=== PATIENT | male | born 1950 | race Caucasian/White ===

== ENCOUNTER 2021-08-24 12:31 | Inpatient (IN) | payer MEDICARE, SELFPAY ==
[2021-08-24] VITALS (23 sets, daily range): BP systolic 51–146; BP diastolic 32–113; PULSE 83–131; RESP 19–45; TEMP 37.7–39.5; O2SAT 84–100; BMI 20.7
--- NOTE | ~2021-08-24 | MR_ITS ---
EXAMINATION: MR BRAIN WITH CONTRAST CLINICAL INFORMATION: Metastatic disease versus paraneoplastic syndrome. Encephalopathy. COMPARISON: Brain MRI from 08/30/2021. TECHNIQUE: MRI of the brain was obtained using routine postcontrast sequences following the administration of 7 mL of Gadavist intravenous contrast. FINDINGS: No demonstrated abnormal enhancement on postcontrast imaging. Specifically, there is no evidence of enhancement of the mesial temporal lobes to strongly suggest active limbic encephalitis. Proportional prominence of the ventricles and sulcal spaces without evidence of obstructive hydrocephalus. No abnormal mass effect. No midline shift. There does appear to be peripheral enhancement associated with the 2 cm lesion centered in the left retropharyngeal space at the level of C1 as well as the 1.6 cm lesion in the left posterior musculature of the neck at the level of C1-C2. Mild enhancement associated with a 1 cm marrow based lesion within the high right parietal lobe. MR/MR head/brain w con IMPRESSION: 1. No suspicious intracranial enhancement to strongly suggest active limbic encephalitis. 2. Moderate generalized cerebral volume loss. 3. Enhancement associated with the previously noted 2 cm lesion in the left retropharyngeal soft tissues at the level of C1, 1.6 cm lesion in the left posterior musculature of the neck at the level of C1-C2, and the 1 cm marrow replacing lesion in the high right parietal bone. Along with a destructive lesion previously demonstrated within the sternum, these lesions are suspicious for metastatic disease.
--- NOTE | ~2021-08-24 | CT_ITS ---
EXAMINATION: CT CHEST, ABDOMEN AND PELVIS WITHOUT CONTRAST CLINICAL INFORMATION: Reason for Exam Fever ? perf viscus vs occult pathology COMPARISON: Chest radiograph earlier today TECHNIQUE: Multidetector volumetric imaging was performed from the thoracic inlet through the pubic symphysis without IV contrast. Sagittal and coronal reformatted images were obtained on the technologist's workstation. This CT examination was performed using dose optimization techniques as appropriate, variously including the following: *Automated exposure control *Adjustment of mA and/or kV according to patient size (this includes techniques or standardized protocols for targeted exams where dose is matched to indication/reason for exam; i.e. extremities or head) *Use of iterative reconstruction technique DLP: 329 mGy-cm FINDINGS: CHEST: Lung: Left lower lobe consolidation is present. Some milder [id number]-type abnormalities are seen in the right lower lobe consistent with inflammatory disease (9:334) no suspicious lung masses are seen.. Mediastinum: The mediastinum is unremarkable. The central vascular structures are unremarkable. No hilar or mediastinal lymphadenopathy. Pericardium/Pleura: No significant effusion. No pleural mass or thickening. Chest Wall/Axilla: There is a lytic expansile destructive lesion involving the sternum measuring 5.0 x 4.3 x 8.7 cm. A center of this measures water density. There is a rounded 1. 0.4 x 1.1 cm subcutaneous nodule in the right upper back (7:3) along with a smaller 0.8 cm nodule in the right upper back (7:6). ABDOMEN/PELVIS: Peritoneal Space: No significant free air or free fluid identified. No evidence to suggest perforation of the viscus. Liver, Gallbladder, Biliary Tree: The liver is normal in size, shape, and attenuation. No focal hepatic lesion or biliary ductal dilatation is present. The gallbladder is unremarkable with no evidence of radiopaque gallstones, gallbladder wall thickening, or obvious pericholecystic inflammatory changes. Pancreas: Unremarkable Spleen: Unremarkable. A tiny splenule is present. Adrenal Glands: Unremarkable Kidneys and Ureters: The kidneys are normal in size, shape, and attenuation. Bilateral renal cysts are present which need no further imaging or follow-up with the largest on the left measuring 5 cm. No hydronephrosis, hydroureter, or calculi seen. No perinephric stranding. Bladder: Gutiérrez catheter is present in the bladder. No bladder calculi are seen. Gastrointestinal Tract: A small hiatal hernia is present. Diverticular changes are present throughout the colon without evidence of diverticulitis. The small and large bowel are otherwise unremarkable. The appendix is not seen with certainty but there is no evidence of appendicitis. Abdominal Wall: No significant hernia is appreciated. Tiny periumbilical hernia seen containing only fat Lymph Nodes: No lymphadenopathy. Vascular: The aorta and iliac vessels demonstrate calcific plaque without aneurysm.. The IVC appears unremarkable. PELVIC VISCERA: Unremarkable OSSEUS STRUCTURES: Minimal degenerative changes are noted in the spine. No bony destructive lesions are seen. CT/CT abdomen pelvis wo con IMPRESSION: 1. Destructive sternal lesion. 2. Left lower lobe infiltrate with tree-in-bud opacities in the right lower lobe suggestive of inflammatory disease Fleischner guidelines were followed. This critical result was discussed with Sukhdeep FREEMAN@10:34pm on the evening of the exam and it was ascertained that the content and urgency of the report was understood at the time of direct communication.
--- NOTE | ~2021-08-24 | MR_ITS ---
EXAMINATION: MR BRAIN WITHOUT CONTRAST CLINICAL INFORMATION: Encephalopathy. COMPARISON: CT chest, abdomen, and pelvis from 08/24/2021. TECHNIQUE: MRI of the brain was obtained using routine sequences without contrast. FINDINGS: Moderately motion degraded exam. No focal intracranial restricted diffusion is demonstrated to suggest acute or subacute cerebral ischemia. No evidence of acute or chronic hemorrhagic products on heme-sensitive imaging. Scattered periventricular, deep white matter, and brainstem T2 FLAIR hyperintensities consistent with moderate underlying microangiopathy. There appears to be symmetric mildly increased T2 FLAIR hyperintensity within the bilateral mesial temporal lobes and insular cortices. Proportional prominence of the ventricles and sulcal spaces without evidence of obstructive hydrocephalus. Normal posterior callosal angle. No abnormal mass effect. No midline shift. Normal appearance of the pituitary gland. Normal positioning of the cerebellar tonsils. Normal arterial and venous vascular flow voids are present. Partially visualized 2 cm lesion with central T2 hyperintensity centered in the left retropharyngeal space but also potentially evolving the left anterior arch of C1 and left occipital condyle. There is also a partially visualized 1.6 cm T2 hyperintense lesion in the left posterior musculature of the neck at the level of C1-C2. There is a 1 cm marrow replacing lesion within the high right parietal bone. No additional marrow signal abnormalities demonstrated. Mild mucosal thickening of the paranasal sinuses. No signal abnormalities within the mastoids. MR/MR head/brain wo con IMPRESSION: 1. No definitive acute intracranial abnormalities. 2. However, there does appear to be mildly increased T2 FLAIR hyperintensity within the bilateral mesial temporal lobes and insular cortices. This may be artifactual given the degree of motion on this exam. However, sequela of underlying infectious/inflammatory limbic encephalitis could have a similar appearance in the appropriate clinical setting. 3. Moderate underlying microangiopathy and generalized cerebral volume loss. 4. Partially visualized heterogeneous lesions in the left retropharyngeal soft tissues at the level of C1 (2 cm) and left posterior musculature of the neck at the level of C1-C2 (1.6 cm). There is also a 1 cm marrow placing lesion in the high right parietal bone. These lesions are likely of similar etiology to the previously demonstrated destructive sternal mass and remain suspicious for underlying metastatic disease.
--- NOTE | ~2021-08-24 | XR_ITS ---
EXAMINATION: XR CHEST CLINICAL INFORMATION: Shortness of breath COMPARISON: None TECHNIQUE: Frontal view of the chest was obtained. FINDINGS: Cardiac silhouette is normal in size. Atherosclerotic disease of the aortic arch. Lungs are adequately aerated. There is no lobar consolidation. No pleural effusion or pneumothorax. Degenerative changes of the spine. XR/XR chest 1V IMPRESSION: No acute pulmonary pathology.
--- NOTE | ~2021-08-24 | XR_ITS ---
EXAMINATION: XR CHEST CLINICAL INFORMATION: Right IJ line placement COMPARISON: Chest radiograph earlier today TECHNIQUE: Frontal view of the chest was obtained. FINDINGS: Since the prior study a right IJ line has been placed with its tip in the SVC. New left basilar atelectasis. Otherwise, significant abnormality is noted involving the heart, lungs, mediastinum, bony thorax or soft tissues. XR/XR chest 1V IMPRESSION: Right IJ line in good position without complication. New left lower lobe atelectasis
--- NOTE | 2021-08-24 12:42 | ED_ITS ---
HPI - General Adult General Chief complaint: General Medical Stated complaint: unresposive Time Seen by Provider: 08/24/21 12:38 Source: patient, family (spouse) and EMS Mode of arrival: EMS Limitations: altered mental status History of Present Illness HPI narrative: 70 years old male brought in by ambulance for acute respiratory distress and unresponsive. On arrival patient is not responsive hypoxic with tachypnea, is given history that the patient was just placed in the retirement since yesterday today found with acute change mental status and difficulty breathing, or any known history at this point is asthma and dementia. Patient was put on CPAP in the emergency department with improvement of the hypoxia, patient now is able to open his eyes to his name. is also healthcare proxy confirming patient is a DNR. on arrival patient was placed on CPAP in the emergency department with improv ement of his oxygenation. History from the had a recent hospitalization at [facility] for dehydration and seizure patient is been on Keppra. Related Data Allergies Allergy/AdvReac Type Severity Reaction Status Date / Time No Known Allergies Allergy Verified 08/24/21 12:39 Review of Systems Review of Systems: Yes Unobtainable due to mental condition [facility] Social History Social History Alcohol intake: never Advance Directives: Yes Advance Directives Information Provided: No Advance Directives on File: No Physical Exam ED Vital Signs: Vital Signs - 24 hr 08/24/21 12:44 08/24/21 12:54 08/24/21 13:07 Temperature 99.9 F 100.3 F Pulse Rate 121 H 111 H Respiratory Rate 45 H 28 H 23 H Blood Pressure 104/76 120/84 Pulse Oximetry 96 99 08/24/21 13:09 Temperature 100.9 F H Pulse Rate 114 H Respiratory Rate 22 H Blood Pressure 124/84 Pulse Oximetry 100 BMI result Body Mass Index 20.7 Course Course Course Narrative: Assessment and plan. 70 years old male with sudden mental status change and hypoxia. 1. Leukocytosis with left shift, fever, and tachycardia with lactic acid of 4 and change mental status patient meet criteria for septic shock, there is no source of infection, patient received IV fluids 30 cc/kg and prophylactic ceftriaxone. ( chest x-ray is unremarkable, UA is unremarkable for infection ). 2. Mental status change that could be seizure and postictal however patient do not have tonic clonic movement CT head/ C-spine/chest/ abdomen and pelvis was ordered in the ED Dr. Jain would rather to observe the patient in ICU 1st and do not get the CT study from the ED. 3. Dehydration and hypernatremia patient received D5W for IV fluids 30 cc/kg for sepsis protocol. 4. Elevated troponin with no EKG ischemic changes management as per ICU team. 5. Elevated D-dimer with hypoxia is a great concern of PE, after discussing with Dr. Jain he will perform cardiac echo to screen for PE and hold off for CTA. 6. patient is a DNR/ DNI as per spouse was also healthcare proxy. Medical Decision Making Lab Data Lab results reviewed: Yes I reviewed the patient's lab results. Result diagrams: 08/24/21 12:37 08/24/21 12:35 Labs: Lab Results 08/24/21 08/24/21 08/24/21 Range/Units 12:35 12:35 12:35 WBC (4.8-10.8) X10*3/uL RBC (4.60-5.80) X10*6/uL Hgb (14.0-18.0) g/dl Hct (42.0-52.0) % MCV (80.0-98.0) fL MCH (27.0-33.0) pg MCHC (31.0-36.0) g/dl RDW (11.0-16.0) % Plt Count (160-400) X10*3/uL MPV (9.4-12.4) fL Immature Gran % (Auto) (0.0-0.4) % Neut % (Auto) (45-73) % Lymph % (Auto) (20-40) % [place] % (Auto) (2-11) % Eos % (Auto) (0-4) % Baso % (Auto) (0-2) % Lymph # (Auto) (1.2-4.9) X10*3/uL [place] # (Auto) (0.1-1.2) X10*3/uL Eos # (Auto) (0.0-0.4) X10*3/uL Baso # (Auto) (0.0-0.2) X10*3/uL Abs Immat Gran (auto) (0.00-0.03) X10*3/uL Absolute Neuts (auto) (2.0-8.3) x10*3/uL Absolute Nucleated RBC (0.0-0.012) X10*3/uL Nucleated RBC % (auto) (0.0-0.2) /100WBC D-Dimer High Sensitivty 62704 NG/ML VBG pH (7.32-7.43) VBG pCO2 mmHg VBG pO2 mmHg VBG HCO3 (22-26) mmol/L VBG O2 Saturation % VBG Base Excess mmol/L Sodium 161 H* (135-145) mmol/L Potassium 4.0 (3.3-5.1) mmol/L Chloride 119 H (96-108) mmol/L Carbon Dioxide 24 (22-29) mmol/L Anion Gap 22 H (12-20) BUN 30 H (9-16) mg/dL Creatinine 1.31 (0.5-1.4) mg/dL Estim Creat Clear Calc 45.7 Estimated GFR 54 POC Glucose (60-115) mg/dL Random Glucose 156 H (60-115) mg/dL Lactic Acid 4.1 H* (0.5-2.0) mmol/L Calcium 10.1 (8.4-10.2) mg/dL Total Bilirubin 1.1 H (0.0-1.0) mg/dL AST 26 (5-37) U/L ALT 31 (0-40) U/L Alkaline Phosphatase 104 (39-117) U/L Troponin I High Sens (<3.5-35.0) ng/L B-Natriuretic Peptide (<100) pg/mL Total Protein 8.0 (6.5-8.0) g/dL Albumin 4.0 (3.5-5.0) g/dL Urine Color Urine Appearance Urine pH (5.0-8.0) Ur Specific [place] (1.005-1.025) Urine Protein (NEG-TRACE) MG/DL Urine Glucose (UA) (NEG) MG/DL Urine Ketones (NEG) MG/DL Urine Blood (NEG) Urine Nitrite (NEG) Ur Leukocyte Esterase (NEG) Urine RBC (0) /HPF Urine WBC (0-4) /HPF Ur Squamous Epith Cells /LPF Urine Bacteria /LPF Urine Mucus /LPF COVID-19 (SEAN) (Negative) COVID-19 Clin Com Influenza Type A (ERIC) (Negative) Influenza Type B (ERIC) (Negative) Influenza A & B Note 08/24/21 08/24/21 08/24/21 Range/Units 12:35 12:35 12:37 WBC 17.1 H (4.8-10.8) X10*3/uL RBC 4.83 (4.60-5.80) X10*6/uL Hgb 14.8 (14.0-18.0) g/dl Hct 47.6 (42.0-52.0) % MCV 98.6 H (80.0-98.0) fL MCH 30.6 (27.0-33.0) pg MCHC 31.1 (31.0-36.0) g/dl RDW 12.0 (11.0-16.0) % Plt Count 243 (160-400) X10*3/uL MPV 9.9 (9.4-12.4) fL Immature Gran % (Auto) 0.5 H (0.0-0.4) % Neut % (Auto) 88.3 H (45-73) % Lymph % (Auto) 6.0 L (20-40) % [place] % (Auto) 5.1 (2-11) % Eos % (Auto) 0.0 (0-4) % Baso % (Auto) 0.1 (0-2) % Lymph # (Auto) 1.0 L (1.2-4.9) X10*3/uL [place] # (Auto) 0.9 (0.1-1.2) X10*3/uL Eos # (Auto) 0.0 (0.0-0.4) X10*3/uL Baso # (Auto) 0.0 (0.0-0.2) X10*3/uL Abs Immat Gran (auto) 0.08 H (0.00-0.03) X10*3/uL Absolute Neuts (auto) 15.1 H (2.0-8.3) x10*3/uL Absolute Nucleated RBC 0.000 (0.0-0.012) X10*3/uL Nucleated RBC % (auto) 0.0 (0.0-0.2) /100WBC D-Dimer High Sensitivty NG/ML VBG pH (7.32-7.43) VBG pCO2 mmHg VBG pO2 mmHg VBG HCO3 (22-26) mmol/L VBG O2 Saturation % VBG Base Excess mmol/L Sodium (135-145) mmol/L Potassium (3.3-5.1) mmol/L Chloride (96-108) mmol/L Carbon Dioxide (22-29) mmol/L Anion Gap (12-20) BUN (9-16) mg/dL Creatinine (0.5-1.4) mg/dL Estim Creat Clear Calc Estimated GFR POC Glucose 115 (60-115) mg/dL Random Glucose (60-115) mg/dL Lactic Acid (0.5-2.0) mmol/L Calcium (8.4-10.2) mg/dL Total Bilirubin (0.0-1.0) mg/dL AST (5-37) U/L ALT (0-40) U/L Alkaline Phosphatase (39-117) U/L Troponin I High Sens 1326.3 H* (<3.5-35.0) ng/L B-Natriuretic Peptide 252 H (<100) pg/mL Total Protein (6.5-8.0) g/dL Albumin (3.5-5.0) g/dL Urine Color Urine Appearance Urine pH (5.0-8.0) Ur Specific [place] (1.005-1.025) Urine Protein (NEG-TRACE) MG/DL Urine Glucose (UA) (NEG) MG/DL Urine Ketones (NEG) MG/DL Urine Blood (NEG) Urine Nitrite (NEG) Ur Leukocyte Esterase (NEG) Urine RBC (0) /HPF Urine WBC (0-4) /HPF Ur Squamous Epith Cells /LPF Urine Bacteria /LPF Urine Mucus /LPF COVID-19 (SEAN) (Negative) COVID-19 Clin Com Influenza Type A (ERIC) (Negative) Influenza Type B (ERIC) (Negative) Influenza A & B Note 08/24/21 08/24/21 08/24/21 Range/Units 12:37 12:37 12:51 WBC (4.8-10.8) X10*3/uL RBC (4.60-5.80) X10*6/uL Hgb (14.0-18.0) g/dl Hct (42.0-52.0) % MCV (80.0-98.0) fL MCH (27.0-33.0) pg MCHC (31.0-36.0) g/dl RDW (11.0-16.0) % Plt Count (160-400) X10*3/uL MPV (9.4-12.4) fL Immature Gran % (Auto) (0.0-0.4) % Neut % (Auto) (45-73) % Lymph % (Auto) (20-40) % [place] % (Auto) (2-11) % Eos % (Auto) (0-4) % Baso % (Auto) (0-2) % Lymph # (Auto) (1.2-4.9) X10*3/uL [place] # (Auto) (0.1-1.2) X10*3/uL Eos # (Auto) (0.0-0.4) X10*3/uL Baso # (Auto) (0.0-0.2) X10*3/uL Abs Immat Gran (auto) (0.00-0.03) X10*3/uL Absolute Neuts (auto) (2.0-8.3) x10*3/uL Absolute Nucleated RBC (0.0-0.012) X10*3/uL Nucleated RBC % (auto) (0.0-0.2) /100WBC D-Dimer High Sensitivty NG/ML VBG pH (7.32-7.43) VBG pCO2 mmHg VBG pO2 mmHg VBG HCO3 (22-26) mmol/L VBG O2 Saturation % VBG Base Excess mmol/L Sodium (135-145) mmol/L Potassium (3.3-5.1) mmol/L Chloride (96-108) mmol/L Carbon Dioxide (22-29) mmol/L Anion Gap (12-20) BUN (9-16) mg/dL Creatinine (0.5-1.4) mg/dL Estim Creat Clear Calc Estimated GFR POC Glucose (60-115) mg/dL Random Glucose (60-115) mg/dL Lactic Acid (0.5-2.0) mmol/L Calcium (8.4-10.2) mg/dL Total Bilirubin (0.0-1.0) mg/dL AST (5-37) U/L ALT (0-40) U/L Alkaline Phosphatase (39-117) U/L Troponin I High Sens (<3.5-35.0) ng/L B-Natriuretic Peptide (<100) pg/mL Total Protein (6.5-8.0) g/dL Albumin (3.5-5.0) g/dL Urine Color YELLOW Urine Appearance CLOUDY Urine pH 5.5 (5.0-8.0) Ur Specific [place] >= 1.030 H (1.005-1.025) Urine Protein NEG (NEG-TRACE) MG/DL Urine Glucose (UA) NEG (NEG) MG/DL Urine Ketones NEG (NEG) MG/DL Urine Blood 3+ H (NEG) Urine Nitrite NEG (NEG) Ur Leukocyte Esterase NEG (NEG) Urine RBC TNTC H (0) /HPF Urine WBC 0 (0-4) /HPF Ur Squamous Epith Cells TRACE /LPF Urine Bacteria NONE /LPF Urine Mucus TRACE /LPF COVID-19 (SEAN) Negative (Negative) COVID-19 Clin Com See Note Influenza Type A (ERIC) Negative (Negative) Influenza Type B (ERIC) Negative (Negative) Influenza A & B Note See Note 08/24/21 Range/Units 13:05 WBC (4.8-10.8) X10*3/uL RBC (4.60-5.80) X10*6/uL Hgb (14.0-18.0) g/dl Hct (42.0-52.0) % MCV (80.0-98.0) fL MCH (27.0-33.0) pg MCHC (31.0-36.0) g/dl RDW (11.0-16.0) % Plt Count (160-400) X10*3/uL MPV (9.4-12.4) fL Immature Gran % (Auto) (0.0-0.4) % Neut % (Auto) (45-73) % Lymph % (Auto) (20-40) % [place] % (Auto) (2-11) % Eos % (Auto) (0-4) % Baso % (Auto) (0-2) % Lymph # (Auto) (1.2-4.9) X10*3/uL [place] # (Auto) (0.1-1.2) X10*3/uL Eos # (Auto) (0.0-0.4) X10*3/uL Baso # (Auto) (0.0-0.2) X10*3/uL Abs Immat Gran (auto) (0.00-0.03) X10*3/uL Absolute Neuts (auto) (2.0-8.3) x10*3/uL Absolute Nucleated RBC (0.0-0.012) X10*3/uL Nucleated RBC % (auto) (0.0-0.2) /100WBC D-Dimer High Sensitivty NG/ML VBG pH 7.36 (7.32-7.43) VBG pCO2 38 mmHg VBG pO2 33 mmHg VBG HCO3 22 (22-26) mmol/L VBG O2 Saturation 39.0 % VBG Base Excess -2.7 mmol/L Sodium (135-145) mmol/L Potassium (3.3-5.1) mmol/L Chloride (96-108) mmol/L Carbon Dioxide (22-29) mmol/L Anion Gap (12-20) BUN (9-16) mg/dL Creatinine (0.5-1.4) mg/dL Estim Creat Clear Calc Estimated GFR POC Glucose (60-115) mg/dL Random Glucose (60-115) mg/dL Lactic Acid (0.5-2.0) mmol/L Calcium (8.4-10.2) mg/dL Total Bilirubin (0.0-1.0) mg/dL AST (5-37) U/L ALT (0-40) U/L Alkaline Phosphatase (39-117) U/L Troponin I High Sens (<3.5-35.0) ng/L B-Natriuretic Peptide (<100) pg/mL Total Protein (6.5-8.0) g/dL Albumin (3.5-5.0) g/dL Urine Color Urine Appearance Urine pH (5.0-8.0) Ur Specific [place] (1.005-1.025) Urine Protein (NEG-TRACE) MG/DL Urine Glucose (UA) (NEG) MG/DL Urine Ketones (NEG) MG/DL Urine Blood (NEG) Urine Nitrite (NEG) Ur Leukocyte Esterase (NEG) Urine RBC (0) /HPF Urine WBC (0-4) /HPF Ur Squamous Epith Cells /LPF Urine Bacteria /LPF Urine Mucus /LPF COVID-19 (SEAN) (Negative) COVID-19 Clin Com Influenza Type A (ERIC) (Negative) Influenza Type B (ERIC) (Negative) Influenza A & B Note Imaging Data Chest x-ray: Attestation: I personally reviewed and interpreted this imaging study as follows: Radiologist's impression: No acute pulmonary disease ECG Data Attestation: I personally reviewed and interpreted this ECG as follows: Interpretation: sinus tachycardia at 127 beats per minutes, left axis deviation, normal intervals, artifact in lead V1, nonspecific ST-T changes. Discharge Plan Discharge Clinical Impression: Altered mental status, Acute respiratory distress, Acute hypernatremia, Elevated troponin, Elevated d-dimer Patient Disposition: Admitted As Inpatient
[2021-08-24 12:45] LABS: MANUAL DIFF FLAG NO
[2021-08-24 12:46] LABS: Glucose, Whole Blood 115 mg/dL (60-115)
[2021-08-24 12:47] LABS: Basophils Percent Auto 0.1 % (0-2); Hematocrit 47.6 % (42.0-52.0); Hemoglobin 14.8 g/dl (14.0-18.0); Imm Gran Abs Auto 0.08 X10*3/uL (0.00-0.03); Imm Gran Pct Auto 0.5 % (0.0-0.4); Mean Corpuscular HGB Conc 31.1 g/dl (31.0-36.0); Mean Corpuscular Hemoglobin 30.6 pg (27.0-33.0); Mean Corpuscular Volume 98.6 fL (80.0-98.0); Mean Platelet Volume 9.9 fL (9.4-12.4); Monocytes Absolute Auto 0.9 X10*3/uL (0.1-1.2); Monocytes Percent Auto 5.1 % (2-11); Neutrophils Absolute Auto 15.1 x10*3/uL (2.0-8.3); Neutrophils Percent Auto 88.3 % (45-73); Platelet Count 243 X10*3/uL (160-400); Red Blood Count 4.83 X10*6/uL (4.60-5.80); White Blood Count 17.1 X10*3/uL (4.8-10.8)
[2021-08-24 13:00] LABS: Appearance Urine CLOUDY; Color Urine YELLOW; Glucose Urine UA NEG (NEG); Leukocyte Esterase Urine NEG (NEG); Nitrite Urine NEG (NEG); PH 5.5 (5.0-8.0); Specific Gravity - Urine >= 1.030 (1.005-1.025); UACC Culture Trigger NO; Urine Blood 3+ (NEG); Urine Ketones NEG (NEG); Urine Protein NEG (NEG-TRACE)
--- NOTE | 2021-08-24 13:00 | ECG_ITS ---
Test Reason : STROKE Blood Pressure : / mmHG Vent. Rate : 127 BPM Atrial Rate : 129 BPM P-R Int : 134 ms QRS Dur : 072 ms QT Int : 304 ms P-R-T Axes : 054 -40 054 degrees QTc Int : 441 ms Artfact in tracing Sinus tachycardia Left axis deviation Nonspecific ST and T wave abnormality Abnormal ECG No previous ECGs available Referred By: Abebe Jain Electronically Signed By:CRISTIAN KAUFMAN
[2021-08-24 13:06] LABS: Lactic Acid 4.1 mmol/L (0.5-2.0)
[2021-08-24] MEDS: 0.9 % Sodium Chloride 1,905.09 ML 1905.09 ML IV (13:06)
[2021-08-24 13:07] LABS: D Dimer High Sensitivity 24782 NG/ML
[2021-08-24] MEDS: cefTRIAXone sodium 1 GM in 0.9 % Sodium Chloride 50 ML IV (13:09)
[2021-08-24 13:11] LABS: Mucus Urine TRACE /LPF; RBC Urine TNTC /HPF (0); Squamous Epithelial Cell Urine TRACE /LPF; WBC Urine 0 /HPF (0-4)
[2021-08-24 13:13] LABS: COVID-19 Test Negative (Negative); IDNOW Serial# 16C4AD1C; Influenza A Negative (Negative); Influenza B2 Negative (Negative)
[2021-08-24 13:13] LABS: Venous Blood Gas Refer to POC result
[2021-08-24 13:13] LABS: VBG Base Excess -2.7 mmol/L; VBG HCO3 22 mmol/L (22-26); VBG pCO2 38 mmHg; VBG pH 7.36 (7.32-7.43); VBG pO2 33 mmHg
[2021-08-24 13:19] LABS: Troponin-I High Sensitivity 1326.3 ng/L (<3.5-35.0)
[2021-08-24 13:20] LABS: Alanine Aminotransferase 31 U/L (0-40); Alkaline Phosphatase 104 U/L (39-117); Anion Gap 22 (12-20); Aspartate Amino Transferase 26 U/L (5-37); Bilirubin Total 1.1 mg/dL (0.0-1.0); Blood Urea Nitrogen 30 mg/dL (9-16); Calcium 10.1 mg/dL (8.4-10.2); Carbon Dioxide 24 mmol/L (22-29); Chloride 119 mmol/L (96-108); Creatinine Clr Calc Pharmacy 45.7; Estimated Glomerular Filt Rate 54; Glucose Random 156 mg/dL (60-115); Sodium 161 mmol/L (135-145)
[2021-08-24] MEDS: Dextrose 5 % and 0.45 % NaCl 1,000 ML 2000 ML IVCONT (14:00)
[2021-08-24] MEDS: levETIRAcetam in NaCl (iso-os) 500 MG/100 ML PIGGYBACK 400 MG IV (14:06)
[2021-08-24] MEDS: HYDROmorphone HCl 0.5 MG/0.5 ML SYRINGE IVPUSH ×2 (14:07→16:00)
[2021-08-24 14:16] LABS: B Type Natriuretic Peptide 252 pg/mL (<100)
[2021-08-24 14:43] LABS: Reflex Lactate? Lactic Acid Added
--- NOTE | 2021-08-24 15:07 | PC.NURSE ---
ICU doctor at bedside and discontinued D5 0.45% NS and ordered D5W instead. Aisha also hung without problem.
--- NOTE | 2021-08-24 15:20 | PHA.MEDREC ---
Pharmacy Consult ? Medication Reconciliation Pharmacy has completed the medication reconciliation. Spoke with patient's Eliana to confirm patient medications. Vanessa Bowden, NavD
[2021-08-24] MEDS: Dextrose 5 % 1,000 ML 2000 ML IVCONT (15:21)
--- NOTE | 2021-08-24 15:38 | PM.CCHP ---
History of Present Illness Date of Service: 08/24/21 Attending physician on admission: Abebe Jain Chief Complaint: End stage Alzheimer's dementia w severe hypernatremia and dehydration Mr. Mccullough is being admitted to the ICU bec of severe hypernatremia, severe dehydration, and possible seizures. History is from the patient?s and from [facility] medical records.? The patient is a 70-year-old man new to [facility] with past medical history of HTN, and Alzheimer?s dementia since 2013, on memantine and donepezil.? At that time, the patient was living in [place], [place], and his neurologist was Dr. Rae.? Bec of the patient's declining condition, his moved them back here to [place], closer to her family, in 2019.? His clinical status has been gradually declining, especially over the last year.? He hasn?t had a normal conversation in about a year.? The last time he saw his neurologist was in March, and the last time the patient's saw his personal physician here in this area, Dr. Limno from [place], was in May. Up until this year, the patient had been able to walk, follow simple commands, and use a fork and knife to eat and bathe with assistance. ?At the beginning of this past May, the patient was admitted to [facility] for dehydration and hypernatremia.? He was discharged to home after a few days, ( didn?t want to put him in SNF), but he was readmitted a few days later w failure to thrive, poor po intake.? Also had jerky movements of his upper and lower extremities.? He had acute kidney injury again, no fever or evidence of infection.? The patient was rehydrated and started on Keppra 750 mg bid, with significant improvement in his mental status and resolution of the jerking movements of his extremities, suggesting likely seizure disorder.? But EEG was done only after he was started on the antiepileptics; the EEG was negative.? The patient was discharged on Keppra, for follow-up with Neurology as an outpatient. The patient was discharged from [facility] to [facility]F on May 27, where he stayed for two weeks, then he went back home, where his has been taking care of him with assistance from her sister.? She is 65, they?ve been for 47 years.? The patient and his have two sons who live in [place], but they don?t visit often.? The patient had physical therapy at home and the would walk with him, with the walking belt. The patient's speech and his appetite have been declining over the last month and over about the last week he has not been able to walk and has eaten very little.? She thinks that he has not known who she is for some time. ?The patient's admitted him back to [facility] yesterday because she was unable to take care of him anymore.? The subject of a feeding tube has previously been discussed with the patient's and she declined.? The patient has DNR status. HISTORY OF PRESENT ILLNESS: ?The patient was BIBA to the ED this morning because of respiratory distress of and unresponsiveness.? In the ED, the patient was unresponsive.? HR was 121, BP 104/76, RR 45.? He was immed put on BiPAP, with Sat 99-100% on FiO2 100%.? Temperature was 101.5 degrees.? Was wearing a diaper.? The patient was started on normal saline. Labs in the ED notable for a white count of 17, hemoglobin 14, DDimer 21578, sodium 161, BUN/creatinine 30/1.3, bicarb 24, potassium 4.0, glucose 115, albumin 4.0, troponin 1326, BNP 252, and Lactic acid 4.1. ?Venous blood gas showed 7.36/38/2.? Urinalysis shows no infection.? Chest x-ray shows no infiltrates.? COVID negative. I saw the patient in the ED about 13:40.? Notably, the patient is not responsive to name.? He?s on BiPAP, with RR in the mid-30s.? He was shaking upper and lower extrems, but this is not a typical grand mal sz.? NS was running. ?His belly is benign.? He has no edema.? He looks very dry. ?I asked to change the fluids to D5W, and to give him ? mg Dilaudid, and 500 mg Keppra.? I asked Dr. Hassan to cancel the CT scans.? With his renal indices, I certainly would not do a CTPA, notwithstanding his D-dimer. ECHOCARDIOGRAM for hemodynamic monitoring: Image quality:? Fair at best.? Findings: 1. Probably normal LV wall thickness 2. LV function appears hyperdynamic.? Unable to assess ejection fraction because I am unable to get clear endocardial images.? Grossly, LV systolic function is probably normal. 3. RV looks grossly normal sized. 4. Aortic valve, mitral valve, and tricuspid valve are structurally normal. 5. Unable to obtain any valvular Dopplers. 6. Unable to obtain any subcostal images, of the heart or the IVC. IMPRESSION: 1. Very end-stage Alzheimer's dementia 2. Failure to thrive.? 2? above. ? 3. Severe hypovolemia.? The patient?s had very little po intake over the last week! 4. Severe hypernatremia.? 2? above. ? 5. Possible seizure activity.? We will dose him with 500-1000 mg of Keppra, see if that stops his motor jerking, and what effect it has on his mental status. 6. Acute respiratory failure. 2? a combination of all the above.? Given the chest x-ray, I doubt that he has pneumonia. 7. ?Possible seizures.? I have loaded him with 500 mg of Keppra and the shaking is substantially reduced.? I will give him another 500 mg if necessary, and then put him on 750 mg bid. 8. ADDISON. 2? dehydration. 9. Marked DDimer elevation.? Nonspecific.? Certainly possible that he has a PE, but clinically I doubt it. ?I will echo him as a screening test.? Even if he did have a PE, a good argument can be made for not anticoagulating him, given the overall end-of-life picture.? I would discuss with his . 10. ID.? Fever, tachypnea, leukocytosis, elevated lactate.? By the numbers, could be septic, but clinically, I?m guessing he?s not.? Rather, the main problem is severe dehydration.? He certainly does not have pneumonia or urinary source.? No reason to have a bacteremia. ?But we haven?t done an abdominal CT to r/o other source.? For now, I will put him on ceftriaxone 1G daily for 24-48 hours to see what shakes out (will cover lung and abdomen).? Cultures were drawn.? If an abdominal source becomes grossly apparent, he can go for a CT. 11. Sepsis protocol management:? By 1640, the patient has had 1L NS, 1L D5W.? I?m giving him another 1L D5W over next hour. 12. I?m fairly certain he has at least mild, if not moderate protein calorie malnutrition.? His normal albumin level undoubtedly is secondary to dehydration. I spoke w the patient?s for about half an hour in the ED, and further in the ICU.? She understands that his condition is deteriorating and he is near end of life.? She does not want a feeding tube.? She understands the ramifications of that.? She does not want to torture him at the end of life.? I told her that we would admit him to the ICU to try to get him straightened out and get him rehydrated and his sodium corrected.? I told her we would treat him gently, slowly, and non invasively.? The end point is our hope that he will be able to eat and take oral hydration after that.? If not, she understands the ramifications.? The main thing is, she wants him to be kept comfortable.? I assured her that that is what we would do.? At the end of our conversation, I did mention to her that it was not certain he would survive this hospitalization.? She understands. I had to do a femoral phlebotomy in the ICU to get repeat labs. Critical care time:? 3+ hours [facility] Social History Social History Housing: [place] Unable to assess alcohol history related to: Unable to respond and Unknown Alcohol intake: never Patient Tobacco Use Status: Tobacco use Unknown Use of substances other than those prescribed or required for medical reasons: Unable to respond Spiritual Healthcare Practices: unable to assess Ep[employer] Healthcare Practices: unable to assess Cultural Healthcare Practices: unable to assess Advance Directives: Yes Advance Directives Information Provided: No Advance Directives on File: No Advance Directives Date on File: 08/24/21 Meds Allergies Allergy/AdvReac Type Severity Reaction Status Date / Time No Known Allergies Allergy Verified 08/24/21 12:39 Home Medications Medication Instructions Recorded Confirmed Last Taken Type acetaminophen 325 mg tablet 650 mg PO BEDTIME 08/24/21 08/24/21 Unknown History albuterol sulfate 1 vial INHALATION Q4H PRN 08/24/21 08/24/21 Unknown History levetiracetam 100 mg/mL oral 7.5 ml PO Q12H 08/24/21 08/24/21 Unknown History solution melatonin 5 mg tablet 5 mg PO BEDTIME 08/24/21 08/24/21 Unknown History multivitamin with minerals-folic 2 tab PO DAILY 08/24/21 08/24/21 Unknown History acid 200 mcg chewable tablet (Multivitamin Gummies) sennosides 8.6 mg tablet (senna) 17.2 mg PO DAILY 08/24/21 08/24/21 Unknown History Physical Exam Vital Signs: Vital Signs: Last Vital Signs Temp 101.8 F H 08/24/21 15:04 Pulse 98 08/24/21 15:04 Resp 32 H 08/24/21 15:04 BP 104/64 08/24/21 15:04 Pulse Ox 96 08/24/21 15:04 BMI result Body Mass Index 20.7 Results Labs CBC and Chem 7: 08/24/21 12:37 08/24/21 12:35 Labs: Laboratory Results - last 24 hr 08/24/21 08/24/21 08/24/21 12:35 12:35 12:35 MCV MCH MCHC RDW Plt Count MPV Immature Gran % (Auto) Neut % (Auto) Lymph % (Auto) [place] % (Auto) Eos % (Auto) Baso % (Auto) Lymph # (Auto) [place] # (Auto) Eos # (Auto) Baso # (Auto) Abs Immat Gran (auto) Absolute Neuts (auto) Absolute Nucleated RBC Nucleated RBC % (auto) D-Dimer High Sensitivty 96578 VBG pH VBG pCO2 VBG pO2 VBG HCO3 VBG O2 Saturation VBG Base Excess Anion Gap 22 H Estim Creat Clear Calc 45.7 Estimated GFR 54 POC Glucose Random Glucose 156 H Lactic Acid 4.1 H* Calcium 10.1 Total Bilirubin 1.1 H AST 26 ALT 31 Alkaline Phosphatase 104 Troponin I High Sens B-Natriuretic Peptide Total Protein 8.0 Albumin 4.0 Urine Color Urine Appearance Urine pH Ur Specific [place] Urine Protein Urine Glucose (UA) Urine Ketones Urine Blood Urine Nitrite Ur Leukocyte Esterase Urine RBC Urine WBC Ur Squamous Epith Cells Urine Bacteria Urine Mucus COVID-19 (SEAN) COVID-19 Clin Com Influenza Type A (ERIC) Influenza Type B (ERIC) Influenza A & B Note 08/24/21 08/24/21 08/24/21 12:35 12:35 12:37 MCV 98.6 H MCH 30.6 MCHC 31.1 RDW 12.0 Plt Count 243 MPV 9.9 Immature Gran % (Auto) 0.5 H Neut % (Auto) 88.3 H Lymph % (Auto) 6.0 L [place] % (Auto) 5.1 Eos % (Auto) 0.0 Baso % (Auto) 0.1 Lymph # (Auto) 1.0 L [place] # (Auto) 0.9 Eos # (Auto) 0.0 Baso # (Auto) 0.0 Abs Immat Gran (auto) 0.08 H Absolute Neuts (auto) 15.1 H Absolute Nucleated RBC 0.000 Nucleated RBC % (auto) 0.0 D-Dimer High Sensitivty VBG pH VBG pCO2 VBG pO2 VBG HCO3 VBG O2 Saturation VBG Base Excess Anion Gap Estim Creat Clear Calc Estimated GFR POC Glucose 115 Random Glucose Lactic Acid Calcium Total Bilirubin AST ALT Alkaline Phosphatase Troponin I High Sens 1326.3 H* B-Natriuretic Peptide 252 H Total Protein Albumin Urine Color Urine Appearance Urine pH Ur Specific [place] Urine Protein Urine Glucose (UA) Urine Ketones Urine Blood Urine Nitrite Ur Leukocyte Esterase Urine RBC Urine WBC Ur Squamous Epith Cells Urine Bacteria Urine Mucus COVID-19 (SEAN) COVID-19 Clin Com Influenza Type A (ERIC) Influenza Type B (ERIC) Influenza A & B Note 08/24/21 08/24/21 08/24/21 12:37 12:37 12:51 MCV MCH MCHC RDW Plt Count MPV Immature Gran % (Auto) Neut % (Auto) Lymph % (Auto) [place] % (Auto) Eos % (Auto) Baso % (Auto) Lymph # (Auto) [place] # (Auto) Eos # (Auto) Baso # (Auto) Abs Immat Gran (auto) Absolute Neuts (auto) Absolute Nucleated RBC Nucleated RBC % (auto) D-Dimer High Sensitivty VBG pH VBG pCO2 VBG pO2 VBG HCO3 VBG O2 Saturation VBG Base Excess Anion Gap Estim Creat Clear Calc Estimated GFR POC Glucose Random Glucose Lactic Acid Calcium Total Bilirubin AST ALT Alkaline Phosphatase Troponin I High Sens B-Natriuretic Peptide Total Protein Albumin Urine Color YELLOW Urine Appearance CLOUDY Urine pH 5.5 Ur Specific [place] >= 1.030 H Urine Protein NEG Urine Glucose (UA) NEG Urine Ketones NEG Urine Blood 3+ H Urine Nitrite NEG Ur Leukocyte Esterase NEG Urine RBC TNTC H Urine WBC 0 Ur Squamous Epith Cells TRACE Urine Bacteria NONE Urine Mucus TRACE COVID-19 (SEAN) Negative COVID-19 Clin Com See Note Influenza Type A (ERIC) Negative Influenza Type B (ERIC) Negative Influenza A & B Note See Note 08/24/21 13:05 MCV MCH MCHC RDW Plt Count MPV Immature Gran % (Auto) Neut % (Auto) Lymph % (Auto) [place] % (Auto) Eos % (Auto) Baso % (Auto) Lymph # (Auto) [place] # (Auto) Eos # (Auto) Baso # (Auto) Abs Immat Gran (auto) Absolute Neuts (auto) Absolute Nucleated RBC Nucleated RBC % (auto) D-Dimer High Sensitivty VBG pH 7.36 VBG pCO2 38 VBG pO2 33 VBG HCO3 22 VBG O2 Saturation 39.0 VBG Base Excess -2.7 Anion Gap Estim Creat Clear Calc Estimated GFR POC Glucose Random Glucose Lactic Acid Calcium Total Bilirubin AST ALT Alkaline Phosphatase Troponin I High Sens B-Natriuretic Peptide Total Protein Albumin Urine Color Urine Appearance Urine pH Ur Specific [place] Urine Protein Urine Glucose (UA) Urine Ketones Urine Blood Urine Nitrite Ur Leukocyte Esterase Urine RBC Urine WBC Ur Squamous Epith Cells Urine Bacteria Urine Mucus COVID-19 (SEAN) COVID-19 Clin Com Influenza Type A (ERIC) Influenza Type B (ERIC) Influenza A & B Note Imaging Radiologist's Impressions: Impressions Chest X-Ray 08/24/21 13:14 IMPRESSION: No acute pulmonary pathology. Critical Care Time Critical Care Time (minutes): 180
--- NOTE | 2021-08-24 15:54 | HO.SEPSISX_ITS ---
Sepsis Bolus Exclusion Sepsis Bolus Exclusion This patient met severe sepsis criteria due to the following condition(s):: Hypo tension and Lactate>=4mmol/L In my clinical judgement the administration of 30 ml/kg of crystalloid would be detrimental to this patient due to the patient's following conditions:: Concern for fluid overload Replace the 30 mls/kg with (*zero amount not acceptable): *Note: One of the travis must be documented Crystalloids amount given in mls:: 1,500
[2021-08-24 17:16] LABS: Albumin Level 2.9 g/dL (3.5-5.0); Anion Gap 15 (12-20); Blood Urea Nitrogen 26 mg/dL (9-16); Calcium 8.1 mg/dL (8.4-10.2); Carbon Dioxide 19 mmol/L (22-29); Chloride 121 mmol/L (96-108); Creatinine Clr Calc Pharmacy 60.5; Estimated Glomerular Filt Rate > 60; Glucose Random 291 mg/dL (60-115); Magnesium 1.8 mg/dL (1.6-2.6); Phosphorus 2.6 mg/dL (2.7-4.5); Potassium 3.9 mmol/L (3.3-5.1); Sodium 151 mmol/L (135-145)
[2021-08-24 17:16] LABS: Hematocrit 37.4 % (42.0-52.0); Hemoglobin 11.5 g/dl (14.0-18.0); Mean Corpuscular HGB Conc 30.7 g/dl (31.0-36.0); Mean Corpuscular Hemoglobin 30.5 pg (27.0-33.0); Mean Corpuscular Volume 99.2 fL (80.0-98.0); Mean Platelet Volume 10.7 fL (9.4-12.4); Platelet Count 141 X10*3/uL (160-400); Red Blood Count 3.77 X10*6/uL (4.60-5.80); White Blood Count 11.5 X10*3/uL (4.8-10.8)
[2021-08-24 17:20] LABS: ~Lactic Acid-LAB USE ONLY 3.1 mmol/L (0.5-2.0)
[2021-08-24 17:22] LABS: Troponin-I High Sensitivity 1380.2 ng/L (<3.5-35.0)
[2021-08-24 17:32] LABS: Procalcitonin 0.15 ng/mL
[2021-08-24] MEDS: levETIRAcetam 750 MG in 0.9 % Sodium Chloride 100 ML 430 MG IV (17:43)
[2021-08-24] MEDS: Lactated Ringers 1,000 ML 500 ML IVCONT (17:43)
[2021-08-24 18:46] LABS: Reflex Lactate? 2 Y
[2021-08-24] MEDS: Acetaminophen Supp 650 MG SUPP.RECT PR (19:34)
[2021-08-24] MEDS: Albumin Human 25 % 100 ML IV ×2 (19:47→21:59)
[2021-08-24 19:48] LABS: ~Lactic Acid-LAB USE ONLY 5.1 mmol/L (0.5-2.0)
[2021-08-24] MEDS: Piperacillin Sodium/Tazobactam 3.375 GM in 0.9 % Sodium Chloride 50 ML IV (20:01)
--- NOTE | 2021-08-24 20:07 | PHA.PROG ---
Admission Date/Time: August 24, 2021 14:19 Indication: Sepsis Weight in k.503 kg Adjusted body weight in K.8 kg [place] body weight in K.7 Obesity Dosing Indication % IBW: N/A Serum Creatinine - Last 168 Hours 08/24/21 08/24/21 12:35 16:42 Creatinine 1.31 0.99 Estimated CrCl and GFR - Last 168 Hours 08/24/21 08/24/21 12:35 16:42 Estim Creat Clear Calc 45.7 60.5 Estimated GFR 54 > 60 Vancomycin Loading Dose: 1250 mg (19.8 mg/kg) Current Vancomycin Dosing Regimen: 1250 mg Q24H Date and Time for next Vancomycin Level to be drawn: 08/26 @ 1800 Pharmacist Comments on Vancomycin Plan: Patient to receive vancomycin 1250 mg Q24H which is about 20 mg/kg per dose. Expected AUC 465 with a trough of 13.1. Per insight, patient is expected to be in therapeutic levels after second dose SCr has been variable but has improved within 4 hours. There is a higher risk that renal function can decline while patient is on multiple nephrotoxic medications Will draw trough prior to 3rd dose to evaluate for safety. This level will not show steady state yet. Pharmacy will continue to monitor renal function daily. Vanessa Bowden PharmD Vancomycin dosing will take advantage of [employer] as a clinical decision support tool that uses Bayesian modeling to calculate individual patient's pharmacokinetic parameters and forecast the patient's drug concentration time course with the target goal AUC 24 range of 400 - 600 mg/L/hr.
[2021-08-24] MEDS: vancomycin HCL 1,250 MG in 0.9 % Sodium Chloride 250 ML 166.67 MG IV (21:00)
--- NOTE | 2021-08-24 21:28 | W.PM.CCHP ---
Procedures Date of Service Date of Service: 08/24/21 Central Line Placement Right IJ: Central Line Comments: Consent for this procedure was obtained over the phone from the patient's Mrs. Eliana Mccullough at 19:40; the reasons for performing this procedure were explained in detail to her including benefits versus risks which include but are not limited to bleeding, infection, pneumothorax among others. Consent for Procedure: Elective - informed consent obtained Time out performed: Yes Sterile Technique Used: Yes Patient placed on monitor/pulse ox: Yes prep: mask, gown and gloves Central line prep: Chlorhexidine scrub Local anesthesia used: lidocaine 1% Amount of anesthesia used (ml): 5 Ultrasound used for placement: Yes Central line lumen inserted: triple Post procedure: sutured in place, good blood return, all ports aspirated, flushed, capped and sterile dressing applied Post procedure x-ray: tip of catheter in good position and no pneumothorax seen Patient tolerated procedure: well and no complications Complications: none
--- NOTE | 2021-08-24 21:31 | PM.EVENT ---
Event Note Date of Service: 08/25/21 Event Note: Upon arrival to the unit, it was noted that the patient was febrile, having rigors, has become hypotensive within the last 15 minutes prior to 19:00, his current max temperature is 103.2 degrees. Although there is no clear source of infection identified, it was suspected that the patient is septic. He has received a total of 2 L of IV fluids; but no antibiotics have been administer so far. Review of his x-ray shows no acute pulmonary process and the urinalysis is negative. Secondary sepsis Physical exam done at 1915 p.m. Blood pressure 77/50 heart rate 110, respirations 18, O2 sat 95% on CPAP, temperature 103.2 degrees. Patient does not respond to painful stimuli, moans and groans on in its own, she is not following commands. Oral mucosa is dry. Neck shows no masses or lymphadenopathy, no JVD. Heart is tachycardic 105 beats per minute. No murmurs, rubs, gallops. Prominent manubrium and hot to touch but not mobile or fluid filled ? normal anatomy Lungs showed diminished lung sounds bilaterally; coarseness at the bases L more than R but no distinct rhonchi or crackles. Abdomen positive bowel sounds in all 4 quadrants, soft. Musculoskeletal muscle rigidity is noted of the upper extremities with some cogwheeling during passive range of motion at the major joints, the lower extremities are less stiff in show no asymmetry of the legs, no edema. Neuro as above difficult to further assess Vascular 2+ pulses of the upper and lower extremities bilaterally. Less than 2nd capillary refill at fingers and toes bilaterally. Revised assessment and plan 1. Suspected bilateral pneumonia left more than right, rule out intra-abdominal process I do believe that the patient is grossly septic, the likelihood of him having an infection particularly in the lungs to me is high based on physical exam, temperature and hypotension. 2. Septic shock due to the above 3. Acute kidney injury 4. Dehydration 5. Hypomagnesemia (borderline) 6. Hypophosphatemia 7. Hypoalbuminemia I did note that the patient's albumin is low, albumin salt was ordered, magnesium replacement and phosphorus replacement, however the patient's blood pressure continues to decrease, at this point I do believe the patient will need vasopressors which will be started peripherally in the meantime we will obtain consent from the patient's for placement of a central line.? I will also start the patient on antibiotics, broad-spectrum coverage with vancomycin and Zosyn.? Furthermore I will order a CT of the chest to ensure were no missing a occult pneumonia which may not be present on x-ray given the degree of dehydration or being on early process, in addition will rule out the possibility of a intra-abdominal pathology such as obstructive uropathy versus a perforated viscus (less likely), given the mild degree of acute kidney injury, I will not order contrast at this point.? However given the elevated lactic acid the possibility of a ischemic bowel is also present, but very less likely for he does have a soft abdomen with good bowel sounds throughout. Once the central line is obtained, I will repeat laboratories including a lactic acid. GI prophylaxis will add PPI DVT prophylaxis on Pneumatic stocks 2240 pm case discussed with Dr. Mandujano, radiologist who reports the patient does have a left lower lobe pneumonia with inflammatory changes noted on the right lung. In addition there is a very concerning destructive lesion of the sternum which could represent some type of malignant lesion versus a developing abscess?. No intra-abdominal pathology noted. I discussed the case with Dr. Jain in detail and he agrees with the above. This incident had a high probability of a clinically significant, sudden, or life threatening deterioration of this patient's condition which required my full and direct attention, intervention and personal management. The total critical care time with direct contact with this patient is 90 minutes of intermittent but direct contact with the patient aside for in any procedures
[2021-08-24] MEDS: Magnesium Sulfate/D5W 1 GM/100 ML PIGGYBACK IV (21:48)
[2021-08-24] MEDS: Potassium Phosphate/NS 15 MMOL/250 ML PLAST..BAG 62.5 MMOL IV (21:51)
[2021-08-24] MEDS: Lactated Ringers 1,000 ML 60 ML IVCONT (21:53)
[2021-08-24 22:32] LABS: Basophils Percent Auto 0.1 % (0-2); Imm Gran Abs Auto 0.06 X10*3/uL (0.00-0.03); Imm Gran Pct Auto 0.4 % (0.0-0.4); Lymphocytes Percent Auto 5.7 % (20-40); MANUAL DIFF FLAG NO; Mean Corpuscular HGB Conc 30.3 g/dl (31.0-36.0); Mean Corpuscular Volume 99.1 fL (80.0-98.0); Mean Platelet Volume 9.9 fL (9.4-12.4); Monocytes Absolute Auto 0.9 X10*3/uL (0.1-1.2); Monocytes Percent Auto 5.4 % (2-11); Neutrophils Absolute Auto 15.1 x10*3/uL (2.0-8.3); Neutrophils Percent Auto 88.4 % (45-73); Platelet Count 152 X10*3/uL (160-400); Red Blood Count 3.33 X10*6/uL (4.60-5.80); Red Cell Distribution Width 11.9 % (11.0-16.0)
[2021-08-24 22:53] LABS: Lactic Acid 2.2 mmol/L (0.5-2.0)
[2021-08-24 22:54] LABS: Alanine Aminotransferase 20 U/L (0-40); Albumin Level 3.9 g/dL (3.5-5.0); Alkaline Phosphatase 61 U/L (39-117); Anion Gap 16 (12-20); Aspartate Amino Transferase 18 U/L (5-37); Bilirubin Total 1.7 mg/dL (0.0-1.0); Blood Urea Nitrogen 27 mg/dL (9-16); Calcium 8.5 mg/dL (8.4-10.2); Carbon Dioxide 21 mmol/L (22-29); Chloride 119 mmol/L (96-108); Creatinine Clr Calc Pharmacy 49.9; Estimated Glomerular Filt Rate 60; Glucose Random 158 mg/dL (60-115); Potassium 3.6 mmol/L (3.3-5.1); Sodium 152 mmol/L (135-145); Total Protein 6.4 g/dL (6.5-8.0)
[2021-08-24 23:01] LABS: Troponin-I High Sensitivity 1457.1 ng/L (<3.5-35.0)
[2021-08-24] MEDS: Dextrose 5 % and 0.45 % NaCl 1,000 ML 999 ML IVCONT (23:36)
[2021-08-25] VITALS (35 sets, daily range): BP systolic 90–131; BP diastolic 19–101; PULSE 87–115; RESP 14–36; TEMP 36.2–37.9; O2SAT 90–100; BMI 23.6
--- NOTE | 2021-08-25 | ECG_ITS ---
Test Reason : rhythm check Blood Pressure : / mmHG Vent. Rate : 103 BPM Atrial Rate : 103 BPM P-R Int : 168 ms QRS Dur : 088 ms QT Int : 326 ms P-R-T Axes : 055 011 038 degrees QTc Int : 427 ms Sinus tachycardia Low voltage QRS Nonspecific ST and T wave abnormality Borderline ECG No previous ECGs available Referred By: Sukhdeep Barbosa Electronically Signed By:CRISTIAN KAUFMAN
[2021-08-25 00:27] LABS: Reflex Lactate? Lactic Acid Added
[2021-08-25 01:19] LABS: ~Lactic Acid-LAB USE ONLY 3.2 mmol/L (0.5-2.0)
[2021-08-25 01:20] LABS: Cancel Lactic Acid Canceled
[2021-08-25 01:44] LABS: VBG Base Excess -5.3 mmol/L; VBG HCO3 19 mmol/L (22-26); VBG pCO2 33 mmHg; VBG pH 7.36 (7.32-7.43); VBG pO2 36 mmHg
[2021-08-25 01:46] LABS: Venous Blood Gas Refer to POC result
[2021-08-25] MEDS: Piperacillin Sodium/Tazobactam 3.375 GM in 0.9 % Sodium Chloride 50 ML IV ×4 (02:02→20:15)
[2021-08-25 05:24] LABS: VBG Base Excess -2.2 mmol/L; VBG HCO3 21 mmol/L (22-26); VBG pCO2 34 mmHg; VBG pH 7.41 (7.32-7.43); VBG pO2 40 mmHg
[2021-08-25 05:24] LABS: Hemoglobin 9.3 g/dl (14.0-18.0); PLT CLUMP 1; WBC ABN SCTR FOR CBC 1
[2021-08-25 05:25] LABS: Hematocrit 30.2 % (42.0-52.0); Mean Corpuscular HGB Conc 30.8 g/dl (31.0-36.0); Mean Corpuscular Hemoglobin 30.5 pg (27.0-33.0); Red Blood Count 3.05 X10*6/uL (4.60-5.80)
[2021-08-25 05:26] LABS: Platelet Count 121 X10*3/uL (160-400); White Blood Count 13.9 X10*3/uL (4.8-10.8)
[2021-08-25 05:32] LABS: Lactic Acid 1.8 mmol/L (0.5-2.0)
[2021-08-25] MEDS: levETIRAcetam 750 MG in 0.9 % Sodium Chloride 100 ML 430 MG IV ×2 (05:37→17:55)
[2021-08-25 05:47] LABS: Band Neutrophils Percent 19 % (3-5); Lymphocytes Absolute Manual 0.8 X10*3/uL (1.2-4.9); Lymphocytes Percent Manual 6 % (20-40); Monocytes Absolute Manual 0.3 X10*3/uL (0.1-1.2); Monocytes Percent Manual 2 % (2-11); Neutrophils Absolute Manual 12.8 X10*3/uL (2.0-8.3); Neutrophils Percent Manual 73 % (45-73)
[2021-08-25 05:48] LABS: Alanine Aminotransferase 19 U/L (0-40); Albumin Level 3.3 g/dL (3.5-5.0); Alkaline Phosphatase 56 U/L (39-117); Anion Gap 13 (12-20); Aspartate Amino Transferase 20 U/L (5-37); Bilirubin Total 1.4 mg/dL (0.0-1.0); Blood Urea Nitrogen 23 mg/dL (9-16); Calcium 8.1 mg/dL (8.4-10.2); Carbon Dioxide 23 mmol/L (22-29); Chloride 118 mmol/L (96-108); Creatinine Clr Calc Pharmacy 62.4; Dohle Bodies PRESENT; Estimated Glomerular Filt Rate > 60; Glucose Random 78 mg/dL (60-115); Magnesium 1.9 mg/dL (1.6-2.6); Phosphorus 2.8 mg/dL (2.7-4.5); Platelet Estimate SLIGHTLY DECREASED (NORMAL); Platelet Morphology Comment NORMAL; Potassium 3.6 mmol/L (3.3-5.1); Sodium 150 mmol/L (135-145); Total Protein 5.5 g/dL (6.5-8.0); Toxic Vacuolation PRESENT
[2021-08-25 05:49] LABS: Macrocytosis 1+ (5-14) /OIF; RBC Morphology NOTED
[2021-08-25 05:55] LABS: Venous Blood Gas Refer to POC result
[2021-08-25] MEDS: Pantoprazole Sodium 40 MG/10 ML VIAL IVPUSH (06:28)
[2021-08-25] MEDS: Potassium Chloride/H20 40 MEQ/100 ML PIGGYBACK 50 MEQ IV (08:56)
[2021-08-25] MEDS: Dextrose 5 % and 0.45 % NaCl 1,000 ML 500 ML IVCONT (08:56)
[2021-08-25] MEDS: Lactated Ringers 1,000 ML 100 ML IVCONT ×2 (08:56→21:32)
[2021-08-25] MEDS: Magnesium Sulfate/D5W 1 GM/100 ML PIGGYBACK IV (08:57)
--- NOTE | 2021-08-25 12:00 | PC.NURSE ---
Gutiérrez removed at 1200 without complication. [place] catheter applied and patent. Patient DTV by 1800.
--- NOTE | 2021-08-25 13:40 | P.PNCC_ITS ---
Subjective Subjective Date of Service: 08/25/21 Interval History: Mr. Mccullough was admitted to the ICU yesterday bec of severe hypernatremia, severe dehydration, and acute respiratory failure. History is from the patient?s and from [facility] medical records.? The patient is a 70-year-old man, new to [facility], with past medical history of HTN, and Alzheimer?s dementia since 2013, was treated with memantine and donepezil.? At that time, the patient was living in [place], [place], and his neurologist was Dr. Rae.? Bec of the patient's declining condition, his moved them back here to [place], closer to her family, in 2019.? His clinical status has been gradually declining, especially over the last year.? He hasn?t talked in about a year.? The last time he saw his neurologist was in March, and the last time the patient's saw his personal physician here in this area, Dr. Limon from [place], was in May. Up until this year, the patient had been able to walk, follow simple commands, and use a fork and knife to eat and bathe with assistance.? At the beginning of this past May, the patient was admitted to [facility] for dehydration and hypernatremia.? He was discharged home after a few days, ( didn?t want to put him in SNF), but he was readmitted a few days later w failure to thrive, poor po intake.? Also had jerky movements of his upper and lower extremities.? He had acute kidney injury again, no fever or evidence of infection.? The patient was rehydrated and started on Keppra 750 mg bid, with significant improvement in his mental status and resolution of the jerking movements of his extremities, suggesting likely seizure disorder.? But EEG was done only after he was started on the antiepileptics; the EEG was negative.? Memantine and donepezil were stopped.? The patient was discharged on Keppra to [facility]F on May 27 for follow-up with Neurology as an outpatient.? He has an appt to see Dr. Rae in September. About two weeks later the patient went back home where his has been taking care of him with assistance from her sister.? The is 65, they?ve been for 47 years.? The patient and his have two sons who live in [place], but they don?t visit often.? The patient had physical therapy at home and the would walk with him, with the walking belt. The patient's speech and his appetite have been declining over the last month and over about the last week he?s not been able to walk and has eaten very little.? She thinks that he has not known who she is for some time.? The patient's admitted him back to [facility] On August 23 because she was unable to take care of him anymore.? The subject of a feeding tube had previously been discussed with the patient's and she declined.? The patient has DNR status. HISTORY OF PRESENT ILLNESS:? The patient was BIBA to the ED yesterday because of respiratory distress and unresponsiveness.? In the ED, the patient was unresponsive.? HR was 121, BP 104/76, RR 45.? He was immed put on BiPAP, with Sat 99-100% on FiO2 100%.? Temperature was 101.5 degrees.? Was wearing a diaper. Labs in the ED were notable for a white count of 17, hemoglobin 14, DDimer 93623, sodium 161, BUN/creatinine 30/1.3, bicarb 24, potassium 4.0, glucose 115, albumin 4.0, troponin 1326, BNP 252, and Lactic acid 4.1.? Venous blood gas showed 7.36/38/2.? Urinalysis showed no infection.? Chest x-ray showed no infiltrates.? COVID was negative. In the ED he was given ceftriaxone and IV fluids, Dilaudid for WOB, and a dose of Keppra bec of the jerking movements (which were not grand mal sz activity).? He was admitted to ICU for further mx, with DNR/DNI status.? Our intention was measured, noninterventional management to correct his sodium and his volume status and see what happened.? When his temp brigitte later to 103?, a central line was placed and abx were changed to vanco and Zosyn.? He went for Chest and abdomen CT which showed a LLL pneumonia, and a 4x8 cm lytic expansile destructive lesion in the sternum. Bedside ECHOCARDIOGRAM yesterday for hemodynamic monitoring: Image quality:? Fair at best.? Findings: 1. Probably normal LV wall thickness 2. LV function appears hyperdynamic.? Unable to assess ejection fraction because I am unable to get clear endocardial images.? Grossly, LV systolic function is probably normal. 3. RV looks grossly normal sized. 4. Aortic valve, mitral valve, and tricuspid valve are structurally normal. 5. Unable to obtain any valvular Dopplers. 6. Unable to obtain any subcostal images, of the heart or the IVC. Overnight, the patient required Levophed for a few hours.? His u/o picked up w continued hydration.? This morning, he?s more active in bed, he?s awake, opening his eyes and making eye contact, but still 100% non-interactive with us.? He was taken off CPAP earlier, put on HFNC, now 50L/30%, with RR about 20, Sat 94%.? CVBG this morning showed 7.41/34/-2.? He has no JVD at 30?, chest maybe has faint tubular quality in LLL, otherwise clear, w normal exp phase.? Heart rate and rhythm are regular, with normal-sounding S1 and S2, with no murmur or gallops.? Abdomen is benign.? No periph edema LABORATORY DATA:? As below.? Notably, white count is down to 13, hemoglobin is down to 9 after volume resuscitation, platelet count is down to 121, sodium is down to 150, BUN/creatinine are down to 23/0.9, T bili down to 1.4, albumin is down to 3.3, PCT was 0.15, Lactic acid normalized. IMPRESSION: 1. Very end-stage Alzheimer's dementia.? Mental status now was dramatically improved, after hydration and treatment of infection. ? 2. Failure to thrive.? 2? above.? 3. Severe hypovolemia.? The patient?s had very little po intake over the last week!? Clinically looks much better hydrated now, and based on lab parameters, he?s prob close to euvolemic. 4. Severe hypernatremia.? 2? above.? Gave him another liter D5 1/2NS this morning, then continuing w LR at 100cc/hr. 5. Possible seizure activity.? My suspicion is that his extremity jerking motions are not sz activity, buty I?ll continue his keppra 750 mg bid. 6. Acute LLL pneumonia.? For now on Zosyn and vanco. 7. Acute respiratory failure. 2? a combination of all the above.? Much improved. 8. ADDISON. 2? dehydration.? Improving. 9. Marked DDimer elevation.? Nonspecific.? Certainly possible that he has a PE, but clinically I doubt it.? Screening echo was negative for RV enlargement.? Even if he did have a PE, there?s nothing I would do about it, given the overall end-of-life picture. 10. Stable troponin elevation.? Not sure what the significance of that is, but nothing to do about it anyway.? I?m not going to anticoagulate him.? Can?t get any pills into him.? No point in giving him rectal ASA. 11. I?m fairly certain he has at least mild, if not moderate protein calorie malnutrition.? His normal albumin level on admission was undoubtedly secondary to dehydration. 12. Destructive lesion on CT scan.? We?ll get an opinion about this from Oncology tomorrow.? I mentioned it to his .? Told her there is nothing we would do about it anyway. Discussed the patient today with Dr. Vallejo.? Given his end-of-life situation, there?s no indication for head CT at this time, even given the sternal metastatic lesion. I spoke w the patient?s at length yesterday.? She understands that his condition is deteriorating and he is near end of life.? She does not want a feeding tube.? She understands the ramifications of that.? She does not want to torture him at the end of life.? I told her that we would admit him to the ICU to try to get him straightened out and get him rehydrated and his sodium corrected.? I told her we would treat him gently, slowly, and non-invasively.? The end point is our hope that he will be able to eat and take oral hydration after that.? If not, she understands the ramifications.? The main thing is, she wants him to be kept comfortable.? I assured her that that is what we would do.? At the end of our conversation, I did mention to her that it was not certain he would survive this hospitalization.? She understands. I spoke with the family again today in the waiting room and they all understand and agree with the plan. Critical care time:? 70+ min Critical Care Time (minutes): 70 Physical Exam Vital Signs: Vital Signs: Last Vital Signs Temp 97.7 F 08/25/21 12:00 Pulse 97 08/25/21 13:00 Resp 19 08/25/21 13:00 BP 114/57 L 08/25/21 13:00 Pulse Ox 94 08/25/21 13:00 Oxygen Flow Rate 60 08/24/21 16:00 BMI result Body Mass Index 23.6 Objective Data Labs CBC & Chem 7: 08/25/21 05:10 08/25/21 05:10 Labs: Laboratory Results - last 24 hr 08/24/21 08/24/21 08/24/21 12:35 16:42 16:42 WBC RBC Hgb Hct MCV MCH MCHC RDW Plt Count MPV Immature Gran % (Auto) Neut % (Auto) Lymph % (Auto) Hartley % (Auto) Eos % (Auto) Baso % (Auto) Lymph # (Auto) Hartley # (Auto) Eos # (Auto) Baso # (Auto) Abs Immat Gran (auto) Absolute Neuts (auto) Absolute Nucleated RBC Nucleated RBC % (auto) Neutrophils % (Manual) Band Neutrophils % Lymphocytes % (Manual) Monocytes % (Manual) Abs Neuts (Manual) Lymphocytes # (Manual) Monocytes # (Manual) Toxic Vacuolation Dohle Bodies Platelet Estimate Plt Morphology Comment RBC Morphology Macrocytosis VBG pH VBG pCO2 VBG pO2 VBG HCO3 VBG O2 Saturation VBG Base Excess Sodium 151 H Potassium 3.9 Chloride 121 H Carbon Dioxide 19 L Anion Gap 15 BUN 26 H Creatinine 0.99 Estim Creat Clear Calc 60.5 Estimated GFR > 60 Random Glucose 291 H D Lactic Acid Lactic Acid F/U @ 2Hr Lactic Acid F/U @ 4Hr Calcium 8.1 L D Phosphorus 2.6 L Magnesium 1.8 Total Bilirubin AST ALT Alkaline Phosphatase Troponin I High Sens 1380.2 H* B-Natriuretic Peptide 252 H Total Protein Albumin 2.9 L D Procalcitonin 08/24/21 08/24/21 08/24/21 16:42 16:43 16:43 WBC 11.5 H RBC 3.77 L D Hgb 11.5 L D Hct 37.4 L D MCV 99.2 H MCH 30.5 MCHC 30.7 L RDW 12.0 Plt Count 141 L D MPV 10.7 Immature Gran % (Auto) Neut % (Auto) Lymph % (Auto) Hartley % (Auto) Eos % (Auto) Baso % (Auto) Lymph # (Auto) Hartley # (Auto) Eos # (Auto) Baso # (Auto) Abs Immat Gran (auto) Absolute Neuts (auto) Absolute Nucleated RBC 0.000 Nucleated RBC % (auto) 0.0 Neutrophils % (Manual) Band Neutrophils % Lymphocytes % (Manual) Monocytes % (Manual) Abs Neuts (Manual) Lymphocytes # (Manual) Monocytes # (Manual) Toxic Vacuolation Dohle Bodies Platelet Estimate Plt Morphology Comment RBC Morphology Macrocytosis VBG pH VBG pCO2 VBG pO2 VBG HCO3 VBG O2 Saturation VBG Base Excess Sodium Potassium Chloride Carbon Dioxide Anion Gap BUN Creatinine Estim Creat Clear Calc Estimated GFR Random Glucose Lactic Acid Lactic Acid F/U @ 2Hr 3.1 H* Lactic Acid F/U @ 4Hr Calcium Phosphorus Magnesium Total Bilirubin AST ALT Alkaline Phosphatase Troponin I High Sens B-Natriuretic Peptide Total Protein Albumin Procalcitonin 0.15 08/24/21 08/24/21 08/24/21 16:45 19:26 22:24 WBC 17.0 H RBC 3.33 L Hgb 10.0 L Hct 33.0 L MCV 99.1 H MCH 30.0 MCHC 30.3 L RDW 11.9 Plt Count 152 L MPV 9.9 Immature Gran % (Auto) 0.4 Neut % (Auto) 88.4 H Lymph % (Auto) 5.7 L Hartley % (Auto) 5.4 Eos % (Auto) 0.0 Baso % (Auto) 0.1 Lymph # (Auto) 1.0 L Hartley # (Auto) 0.9 Eos # (Auto) 0.0 Baso # (Auto) 0.0 Abs Immat Gran (auto) 0.06 H Absolute Neuts (auto) 15.1 H Absolute Nucleated RBC 0.000 Nucleated RBC % (auto) 0.0 Neutrophils % (Manual) Band Neutrophils % Lymphocytes % (Manual) Monocytes % (Manual) Abs Neuts (Manual) Lymphocytes # (Manual) Monocytes # (Manual) Toxic Vacuolation Dohle Bodies Platelet Estimate Plt Morphology Comment RBC Morphology Macrocytosis VBG pH VBG pCO2 VBG pO2 VBG HCO3 VBG O2 Saturation VBG Base Excess Sodium Potassium Chloride Carbon Dioxide Anion Gap BUN Creatinine Estim Creat Clear Calc Estimated GFR Random Glucose Lactic Acid Lactic Acid F/U @ 2Hr Lactic Acid F/U @ 4Hr 5.1 H* Calcium Phosphorus Magnesium Total Bilirubin AST ALT Alkaline Phosphatase Troponin I High Sens B-Natriuretic Peptide Total Protein Albumin Cancelled Procalcitonin 08/24/21 08/24/21 08/24/21 22:24 22:24 22:24 WBC RBC Hgb Hct MCV MCH MCHC RDW Plt Count MPV Immature Gran % (Auto) Neut % (Auto) Lymph % (Auto) Hartley % (Auto) Eos % (Auto) Baso % (Auto) Lymph # (Auto) Hartley # (Auto) Eos # (Auto) Baso # (Auto) Abs Immat Gran (auto) Absolute Neuts (auto) Absolute Nucleated RBC Nucleated RBC % (auto) Neutrophils % (Manual) Band Neutrophils % Lymphocytes % (Manual) Monocytes % (Manual) Abs Neuts (Manual) Lymphocytes # (Manual) Monocytes # (Manual) Toxic Vacuolation Dohle Bodies Platelet Estimate Plt Morphology Comment RBC Morphology Macrocytosis VBG pH VBG pCO2 VBG pO2 VBG HCO3 VBG O2 Saturation VBG Base Excess Sodium 152 H Potassium 3.6 Chloride 119 H Carbon Dioxide 21 L Anion Gap 16 BUN 27 H Creatinine 1.20 Estim Creat Clear Calc 49.9 Estimated GFR 60 Random Glucose 158 H D Lactic Acid 2.2 H* Lactic Acid F/U @ 2Hr Lactic Acid F/U @ 4Hr Calcium 8.5 Phosphorus Magnesium Total Bilirubin 1.7 H AST 18 ALT 20 Alkaline Phosphatase 61 D Troponin I High Sens 1457.1 H* B-Natriuretic Peptide Total Protein 6.4 L Albumin 3.9 D Procalcitonin 08/25/21 08/25/21 08/25/21 00:43 01:36 05:10 WBC RBC Hgb Hct MCV MCH MCHC RDW Plt Count MPV Immature Gran % (Auto) Neut % (Auto) Lymph % (Auto) Hartley % (Auto) Eos % (Auto) Baso % (Auto) Lymph # (Auto) Hartley # (Auto) Eos # (Auto) Baso # (Auto) Abs Immat Gran (auto) Absolute Neuts (auto) Absolute Nucleated RBC Nucleated RBC % (auto) Neutrophils % (Manual) Band Neutrophils % Lymphocytes % (Manual) Monocytes % (Manual) Abs Neuts (Manual) Lymphocytes # (Manual) Monocytes # (Manual) Toxic Vacuolation Dohle Bodies Platelet Estimate Plt Morphology Comment RBC Morphology Macrocytosis VBG pH 7.36 VBG pCO2 33 VBG pO2 36 VBG HCO3 19 L VBG O2 Saturation 49.0 VBG Base Excess -5.3 Sodium 150 H Potassium 3.6 Chloride 118 H Carbon Dioxide 23 Anion Gap 13 BUN 23 H Creatinine 0.96 Estim Creat Clear Calc 62.4 Estimated GFR > 60 Random Glucose 78 D Lactic Acid Lactic Acid F/U @ 2Hr 3.2 H* Lactic Acid F/U @ 4Hr Calcium 8.1 L Phosphorus 2.8 Magnesium 1.9 Total Bilirubin 1.4 H AST 20 ALT 19 Alkaline Phosphatase 56 Troponin I High Sens B-Natriuretic Peptide Total Protein 5.5 L Albumin 3.3 L Procalcitonin 08/25/21 08/25/21 08/25/21 05:10 05:10 05:16 WBC 13.9 H RBC 3.05 L Hgb 9.3 L Hct 30.2 L MCV 99.0 H MCH 30.5 MCHC 30.8 L RDW 12.0 Plt Count 121 L MPV 10.0 Immature Gran % (Auto) Cancelled Neut % (Auto) Cancelled Lymph % (Auto) Cancelled Hartley % (Auto) Cancelled Eos % (Auto) Cancelled Baso % (Auto) Cancelled Lymph # (Auto) Cancelled Hartley # (Auto) Cancelled Eos # (Auto) Cancelled Baso # (Auto) Cancelled Abs Immat Gran (auto) Cancelled Absolute Neuts (auto) Cancelled Absolute Nucleated RBC 0.000 Nucleated RBC % (auto) 0.0 Neutrophils % (Manual) 73 Band Neutrophils % 19 H Lymphocytes % (Manual) 6 L Monocytes % (Manual) 2 Abs Neuts (Manual) 12.8 H Lymphocytes # (Manual) 0.8 L Monocytes # (Manual) 0.3 Toxic Vacuolation PRESENT Dohle Bodies PRESENT Platelet Estimate SLIGHTLY DECREASED Plt Morphology Comment NORMAL RBC Morphology NOTED Macrocytosis 1+ (5-14) VBG pH 7.41 VBG pCO2 34 VBG pO2 40 VBG HCO3 21 L VBG O2 Saturation 62.0 VBG Base Excess -2.2 Sodium Potassium Chloride Carbon Dioxide Anion Gap BUN Creatinine Estim Creat Clear Calc Estimated GFR Random Glucose Lactic Acid 1.8 Lactic Acid F/U @ 2Hr Lactic Acid F/U @ 4Hr Calcium Phosphorus Magnesium Total Bilirubin AST ALT Alkaline Phosphatase Troponin I High Sens B-Natriuretic Peptide Total Protein Albumin Procalcitonin Quality Stroke Does the patient have a stroke diagnosis?: No VTE Prior VTE?: No VTE Risk Level:: Medical - moderate - high VTE Device Contraindication: N/A - Device Ordered VTE Drug Contraindication: Treatment Not Indicated Critical Care Time Critical Care Time (minutes): 60
[2021-08-25] MEDS: vancomycin HCL 1,250 MG in 0.9 % Sodium Chloride 250 ML 166.67 MG IV (21:00)
[2021-08-26] VITALS (21 sets, daily range): BP systolic 104–135; BP diastolic 51–84; PULSE 93–111; RESP 15–29; TEMP 36.2–38.3; O2SAT 93–100; BMI 24.7
[2021-08-26 00:21] LABS: VBG Base Excess -2.2 mmol/L; VBG HCO3 21 mmol/L (22-26); VBG pCO2 33 mmHg; VBG pH 7.41 (7.32-7.43); VBG pO2 43 mmHg
[2021-08-26] MEDS: Piperacillin Sodium/Tazobactam 3.375 GM in 0.9 % Sodium Chloride 50 ML IV ×4 (01:50→21:21)
--- NOTE | 2021-08-26 04:18 | PC.NURSE ---
Assumed care at 15:00. Patient nonverbal, Minimal groaning. No response to questions or reassurance. Hand-holding appears to calm patient. Tracks sometimes. Moves all extremities, recurrent spastic tremors of all extremities. Is continuing on high flow, and this was titrated down from 50 LPM and 30 % to 40 LPM and 30%, with no incresed work of breathing, and steady Spo2 in the mid to high 90's. Patient NPO, but mouth swabbed with good effect. Patient is in sinus rhythm and sinus tachycardia in the low 100's on monitor. Patient BP somewhat low and had restarted Levophed at 19:15; was able to wean this back off. Distant heart sounds. Patient afebrile, VS otherwise unremarkable. 4 BMs of hard formed stool, two very large BMs. Soap suds enema with good effect. [place] catheter with good effect, replaced 3 times.
[2021-08-26 04:29] LABS: Venous Blood Gas Refer to POC result
[2021-08-26 05:35] LABS: VBG HCO3 22 mmol/L (22-26); VBG pCO2 33 mmHg; VBG pH 7.43 (7.32-7.43); VBG pO2 40 mmHg
[2021-08-26 05:57] LABS: Imm Gran Abs Auto 0.12 X10*3/uL (0.00-0.03); Lymphocytes Absolute Auto 0.9 X10*3/uL (1.2-4.9); Mean Corpuscular Volume 97.8 fL (80.0-98.0); Monocytes Percent Auto 4.7 % (2-11); PLT CLUMP 1; SCAN SMEAR FLAG 1
[2021-08-26 05:59] LABS: Basophils Percent Auto 0.1 % (0-2); Eosinophils Percent Auto 0.3 % (0-4); Hematocrit 26.4 % (42.0-52.0); Hemoglobin 8.2 g/dl (14.0-18.0); Lymphocytes Percent Auto 6.9 % (20-40); Mean Corpuscular HGB Conc 31.1 g/dl (31.0-36.0); Mean Corpuscular Hemoglobin 30.4 pg (27.0-33.0); Mean Platelet Volume 10.8 fL (9.4-12.4); Monocytes Absolute Auto 0.6 X10*3/uL (0.1-1.2); Neutrophils Absolute Auto 10.9 x10*3/uL (2.0-8.3); Red Cell Distribution Width 12.2 % (11.0-16.0)
[2021-08-26 06:00] LABS: MANUAL DIFF FLAG NO; Platelet Count 112 X10*3/uL (160-400); White Blood Count 12.5 X10*3/uL (4.8-10.8)
[2021-08-26 06:15] LABS: Alanine Aminotransferase 22 U/L (0-40); Albumin Level 2.9 g/dL (3.5-5.0); Alkaline Phosphatase 64 U/L (39-117); Anion Gap 10 (12-20); Aspartate Amino Transferase 28 U/L (5-37); Bilirubin Total 0.8 mg/dL (0.0-1.0); Blood Urea Nitrogen 19 mg/dL (9-16); Calcium 8.4 mg/dL (8.4-10.2); Carbon Dioxide 24 mmol/L (22-29); Chloride 118 mmol/L (96-108); Creatinine Clr Calc Pharmacy 81.4; Estimated Glomerular Filt Rate > 60; Glucose Random 84 mg/dL (60-115); Potassium 3.8 mmol/L (3.3-5.1); Sodium 148 mmol/L (135-145)
[2021-08-26] MEDS: levETIRAcetam 750 MG in 0.9 % Sodium Chloride 100 ML 430 MG IV ×2 (06:26→17:44)
[2021-08-26] MEDS: Pantoprazole Sodium 40 MG/10 ML VIAL IVPUSH (06:27)
[2021-08-26 06:28] LABS: Venous Blood Gas Refer to POC result
--- NOTE | 2021-08-26 07:23 | HE.PHANOTE ---
FLORENCE KIRK CONTINUE CURRENT DOSE, NEXT TROUGH DUE AT 1800 ON 08/26. ERIN
[2021-08-26] MEDS: KCl 20 mEq in 5% Dex/0.45% Sod 20 MEQ/1,000 ML IV.SOLN 100 MEQ IVCONT ×2 (09:36→20:01)
--- NOTE | 2021-08-26 09:48 | P.PNCC_ITS ---
Subjective Subjective Date of Service: 08/26/21 Interval History: 70-year-old significantly demented male presents with altered mental status manifested by unresponsiveness and acute hypoxic respiratory failure with a very distinct left lower lobe infiltrate so this is a lobar pneumonia on vancomycin and piperacillin but does not have a chronic lung history does not have a cardiac history of any sort either negative troponin and of course COVID in influenza negative as well and was hypernatremic and after fluid resuscitation and oxygen support on nasal high-flow he is now weaned to an FiO2 of 40% and only 30 liters/minute a tolerating the the nasal high-flow mechanism and he is awake and responsive but very difficult to adeno to get him to follow directions but nonetheless he he was tested with a clear liquids seem to swallow well with no coughing no bedside evidence of of aspiration and is no significant respiratory effort he has got adequate urine output doing well with a in metabolically with electrolytes as well as a perfectly compensated blood gas and at this point could probably be downgraded to an intermediate care and then weaned off of his high-flow mechanism altogether Critical Care Time (minutes): 60 Physical Exam Vital Signs: Vital Signs: Last Vital Signs Temp 97.4 F 08/26/21 08:00 Pulse 101 H 08/26/21 08:00 Resp 22 H 08/26/21 08:27 BP 115/61 08/26/21 08:00 Pulse Ox 97 08/26/21 08:00 Oxygen Flow Rate 60 08/24/21 16:00 BMI result Body Mass Index 24.7 Off pressor support his systolic pressure is 120 in sinus rhythm at rate 97 awake cooperative oxygen saturation 96% Nonfocal neurologically Abdomen is soft no organomegaly nontender Chest with no adventitious sounds just left lower lobe rales Cardiac exam by bedside echo is class 1 and no primary valve or pericardial disease Skin intact Objective Data Labs CBC & Chem 7: 08/26/21 05:36 08/26/21 05:36 Labs: Laboratory Results - last 24 hr 08/25/21 08/26/21 08/26/21 00:15 00:13 05:26 WBC RBC Hgb Hct MCV MCH MCHC RDW Plt Count MPV Immature Gran % (Auto) Neut % (Auto) Lymph % (Auto) [place] % (Auto) Eos % (Auto) Baso % (Auto) Lymph # (Auto) [place] # (Auto) Eos # (Auto) Baso # (Auto) Abs Immat Gran (auto) Absolute Neuts (auto) Absolute Nucleated RBC Nucleated RBC % (auto) VBG pH 7.41 7.43 VBG pCO2 33 33 VBG pO2 43 40 VBG HCO3 21 L 22 VBG O2 Saturation 70.0 66.0 VBG Base Excess -2.2 -1.0 Sodium Potassium Chloride Carbon Dioxide Anion Gap BUN Creatinine Estim Creat Clear Calc Estimated GFR Random Glucose Calcium Phosphorus 2.0 L Total Bilirubin AST ALT Alkaline Phosphatase Total Protein Albumin 08/26/21 08/26/21 05:36 05:36 WBC 12.5 H RBC 2.70 L Hgb 8.2 L Hct 26.4 L MCV 97.8 MCH 30.4 MCHC 31.1 RDW 12.2 Plt Count 112 L MPV 10.8 Immature Gran % (Auto) 1.0 H Neut % (Auto) 87.0 H Lymph % (Auto) 6.9 L [place] % (Auto) 4.7 Eos % (Auto) 0.3 Baso % (Auto) 0.1 Lymph # (Auto) 0.9 L [place] # (Auto) 0.6 Eos # (Auto) 0.0 Baso # (Auto) 0.0 Abs Immat Gran (auto) 0.12 H Absolute Neuts (auto) 10.9 H Absolute Nucleated RBC 0.000 Nucleated RBC % (auto) 0.0 VBG pH VBG pCO2 VBG pO2 VBG HCO3 VBG O2 Saturation VBG Base Excess Sodium 148 H Potassium 3.8 Chloride 118 H Carbon Dioxide 24 Anion Gap 10 L BUN 19 H Creatinine 0.82 Estim Creat Clear Calc 81.4 Estimated GFR > 60 Random Glucose 84 Calcium 8.4 Phosphorus Total Bilirubin 0.8 AST 28 ALT 22 Alkaline Phosphatase 64 Total Protein 5.0 L Albumin 2.9 L Microbiology Microbiology Results: Microbiology 08/24/21 13:04 Blood - Venous Blood Culture - Preliminary No growth after 24 hours. 08/24/21 12:35 Blood - Venous Blood Culture - Preliminary No growth after 24 hours. Progress Note: A&P Assessment and plan (1) Altered mental status: Status: Acute (2) Acute respiratory distress: Status: Acute (3) Acute hypernatremia: Status: Acute (4) Elevated troponin: Status: Acute (5) Elevated d-dimer: Status: Acute (6) Acute respiratory failure with hypoxia: Status: Acute (7) Community acquired pneumonia of left lower lobe of lung: Status: Acute Plan In addition to the above problems bear in mind that inadvertently we found that there was evidence of a sternal mass which is clearly eroding through the cortex of the bone so very big concern if not due to septic embolization then possibly a malignancy and if the family were interested the it it would be in the easy to approach biopsy by Interventional Radiology and it could be a further bone survey if the family wished to get further definition of this mass but at the very least a with probably Teodoro no contribute to family decision making to generating a prognosis Quality Stroke Does the patient have a stroke diagnosis?: No VTE Prior VTE?: No VTE Risk Level:: Medical - moderate - high VTE Device Contraindication: N/A - Device Ordered VTE Drug Contraindication: Treatment Not Indicated
[2021-08-26 14:19] LABS: Anion Gap 9 (12-20); Blood Urea Nitrogen 17 mg/dL (9-16); Calcium 8.4 mg/dL (8.4-10.2); Carbon Dioxide 24 mmol/L (22-29); Chloride 119 mmol/L (96-108); Creatinine Clr Calc Pharmacy 80.4; Estimated Glomerular Filt Rate > 60; Glucose Random 128 mg/dL (60-115); Sodium 148 mmol/L (135-145)
--- NOTE | 2021-08-26 14:56 | MHC.CM.PN ---
This lyric writer meet with patient and . is HCP, requested copy. Reviewed IMM. Pt from [facility], was there for 1 day. reports she is paying for private pay bed hold, wants patient to return. Referrals sent via [facility]. Case Management will continue to follow for discharge planning needs.
[2021-08-26 20:31] LABS: Vancomycin Trough 7.2 mcg/mL (10.0-20.0)
--- NOTE | 2021-08-26 20:53 | HE.PHANOTE ---
VANCOMYCIN ADDENDUM: LEVEL AFTER 2 DOSES CAME BACK AT 7.2, INCREASED DOSE SLIGHTLY TO 1500 MG Q 24 HOURS, ANTICIPATED AUC OF 481, WILL CHECK ANOTHER LEVEL BHAVYA
[2021-08-26] MEDS: vancomycin HCL 1,500 MG in 0.9 % Sodium Chloride 500 ML 333.33 MG IV (21:36)
[2021-08-27] MEDS: Piperacillin Sodium/Tazobactam 3.375 GM in 0.9 % Sodium Chloride 50 ML IV ×4 (02:25→19:57)
[2021-08-27] MEDS: KCl 20 mEq in 5% Dex/0.45% Sod 20 MEQ/1,000 ML IV.SOLN 100 MEQ IVCONT ×3 (02:31→23:46)
[2021-08-27 03:14] VITALS: BP 148/97; PULSE 90; RESP 20; TEMP 37.4; O2SAT 98
[2021-08-27] MEDS: levETIRAcetam 750 MG in 0.9 % Sodium Chloride 100 ML 430 MG IV ×2 (06:17→18:39)
[2021-08-27] MEDS: Pantoprazole Sodium 40 MG/10 ML VIAL IVPUSH (06:17)
[2021-08-27 06:57] LABS: Creatinine Clr Calc Pharmacy 86.7; Estimated Glomerular Filt Rate > 60
--- NOTE | 2021-08-27 07:17 | HE.PHANOTE ---
FLOR[place] Continue current dose, next trough due at 1900 Yvon
[2021-08-27 08:00] VITALS: BP 150/70; PULSE 87; RESP 20; TEMP 37.1; O2SAT 98
[2021-08-27 09:09] LABS: Sodium 148 mmol/L (135-145)
--- NOTE | 2021-08-27 09:10 | HO.PM.IMPN ---
Subjective Subjective Date of Service: 08/27/21 Interval History: Hypernatremia, sternal lesion, acute hypoxemic respiratory failure secondary pneumonia Review of Systems Patient opens eyes , otherwise does not follow many commands. Sleepy but more awake over afternoon Physical Exam Vital Signs: Vital Signs: Last Vital Signs Temp 98.8 F 08/27/21 08:00 Pulse 87 08/27/21 08:00 Resp 20 08/27/21 08:00 BP 150/70 H 08/27/21 08:00 Pulse Ox 98 08/27/21 08:00 Oxygen Flow Rate 60 08/24/21 16:00 BMI result Body Mass Index 24.7 Appearance: Awake , more alert, nonverbal cvs: rrr, [id number] . res: clear to auscultation ,no rhonchii or wheezing abd: soft, bs present. ext pulses present , no cyanosis . neuro: awake ,does not follow commands. Objective Data Active Medications Acetaminophen (Acetaminophen Supp 650 Mg Supp.Rect) 650 mg [place] Q6H PRN PRN Reason: Fever >100.4 Last Admin: 08/24/21 19:34 Dose: 650 mg Documented by: BOUBACAR Levetiracetam 750 mg/ Sodium (Chloride) 107.5 mls @ 430 mls/hr IV Q12H [facility] Last Infusion: 08/27/21 06:42 Dose: 0 mls/hr Documented by: EBER Piperacillin Sod/Tazobactam (Sod 3.375 gm/ Sodium Chloride) 50 mls @ 100 mls/hr IV Q6H [facility] Last Admin: 08/27/21 09:04 Dose: 100 mls/hr Documented by: ANGELINE Potassium Chloride/Dextrose/Sod Cl () 20 meq in 1,000 mls @ 100 mls/hr IVCONT .Q10H [facility] Last Admin: 08/27/21 02:31 Dose: 100 mls/hr Documented by: EBER Vancomycin HCl 1,500 mg/ (Sodium Chloride) 500 mls @ 333.333 mls/hr IV Q24H [facility] Last Infusion: 08/26/21 23:40 Dose: 0 mls/hr Documented by: KATE Pantoprazole Sodium (Pantoprazole Sodium 40 Mg/10 Ml Vial) 40 mg IVPUSH DAILY@0630 [facility] Last Admin: 08/27/21 06:17 Dose: 40 mg Documented by: EBER Pharmacy Consult (Consult Rx Vancomycin Dosing) 1 each MISCELLANE DAILY PRN PRN Reason: Consult order Labs CBC & Chem 7: 08/26/21 05:36 08/27/21 06:20 Labs: Laboratory Results - last 24 hr 08/26/21 08/26/21 08/27/21 13:49 18:16 06:20 Anion Gap 9 L Estim Creat Clear Calc 80.4 86.7 Estimated GFR > 60 > 60 Random Glucose 128 H D Calcium 8.4 Vancomycin Trough 7.2 L Microbiology Microbiology Results: Microbiology 08/24/21 13:04 Blood Culture - Preliminary Blood - Venous No growth after 48 hours. 08/24/21 12:35 Blood Culture - Preliminary Blood - Venous No growth after 48 hours. Assessment and Plan (1) Community acquired pneumonia of left lower lobe of lung: Status: Acute (2) Acute respiratory failure with hypoxia: Status: Acute Plan Acute respiratory failure with hypoxia sec Pneumonia: continue iv antibioics,oxygen support Hyponatremia: probbale due to low po intake. repeat sodiumlevels this afternoon toxicmetabolic encephalpathy multifactorial: Pneumonia, as per has Alzheimer dementia unclear etiology, electrolytic abnormalities, possible seizures, severe dehydration: Seen by speech and Swallow recommended pureed diet while awake. Sternal lesion: Added Oncology call evaluation. Patient has advanced Alzheimer, failure to thrive almost 2 months as per , and multiple medical issues as above -patient overall prognosis is very poor. Above was discussed with patient in detail length she understand but she currently want to continue conservative management. Quality Stroke Does the patient have a stroke diagnosis?: No VTE Prior VTE?: No VTE Risk Level:: Medical - moderate - high VTE Device Contraindication: N/A - Device Ordered VTE Drug Contraindication: Treatment Not Indicated
[2021-08-27 11:42] VITALS: BP 140/80; PULSE 84; RESP 18; TEMP 36.6; O2SAT 99
--- NOTE | 2021-08-27 15:20 | MHC.CM.PN ---
met with we discussed retruning to [facility] when stable vs home with 24 hr care
--- NOTE | 2021-08-27 15:31 | MHC.SL.SWA ---
Speech Pathologist Impression: Risk of Aspiration Due to: Lethargy Neurological Condition History of Pneumonia Poor PO Intake Reduced Cognition Dysphasia Diet Status: Liquid Consistency and Strategies for Safe Swallow: Liquid Intake Recommendation: Thin Liquid Intake Strategies: Small Sips No Straws Solid Food Consistency: Dietary Recommendations: Pureed (NDD1) Additional Modifications to Solid Foods: Pt will need full assist/supervision at all meals, aspiration precautions. Pt must be awake, alert and engaged for all administration of PO. Do not attempt if refusing, lethargic. Oral Medication Intake: Crushed with Puree Please contact the pharmacy regarding appropriate crushable or liquid drug formulations that are available whenever modified delivery is recommended. Compensatory Strategies and Precautions to be Taken for Safe Swallow: Sitting Upright (90 deg) No Straw Liquids from Cup Liquids from Spoon Small Bites and Sips Alternate Liquids/Solids Rate of Ingestion Change Supervision While Eating and Drinking for Safe Swallow: Total Supervision (1:1) Foods to Avoid: Swallowing Recommended Treatments: Compens. Strategy Educat. Recommendation for Speech: Inpatient Speech Therapy Comment: Pt w/advanced Alzheimer's dementia, Adult FTT, has had significant decline in taking/tolerating food/liquids. Pt prior to admit was tolerating primarily puree, thin liquids. Only limited P.O. trials were completed on today's assessment as Pt tolerated only small amounts, refused some p.o. and had waxing/waning lethargy/wakefulness. Given 's report and what was observed at bedside, recommend UPGRADE pt from Clear Liquid diet to PUREE (NDD1) with THIN liquids, with Pills crushed in PUREE. Pt will need complete supervision at all administration of PO, do not attempt is pt is lethargic or refusing. Pt to small sips of liquid by tsp or controlled cup sip, NO STRAWS. Due to history of limited intake, Pt likely to benefit from more frequent attempts at meals throughout day. [employer] will continue to follow, monitor toleration of diet, re-assess swallow, Carlton ENRIQUEZ, Procurement Agent notified of recommendation by secure text. Frequency/Duration: Date Range for Service Req: Timeline to reassess: Vibration Analyst Clinican/Clinical Fellow: No Supervisory Statement: I have reviewed and agree with the student/clinical fellow's documentation: N/A Speech Language Pathologist: Ambreen Dash M.A., CCC-[employer]
[2021-08-27 15:52] VITALS: BP 140/73; PULSE 78; RESP 19; TEMP 37.2; O2SAT 97
[2021-08-27 17:16] LABS: Sodium 146 mmol/L (135-145)
--- NOTE | 2021-08-27 17:42 | P.CNHO_ITS ---
Subjective - Subjective Chief complaint: Consult for: Sternal lesion. Patient: new to practice Consult date: 08/27/21 Requesting Physician: sriram Primary Care Provider: Iveth Limon MD Medical Summary: DIAGNOSIS: STERNAL LESION. HPI - Consult Narrative Reason for consult: consult for: destructive Sternal lesion. Narrative: Krishna Mccullough is a 70-year-old gentleman who was initially admitted to the ICU due to severe hypernatremia, severe dehydration, and possible seizures. He is new to [facility] with with Alzheimer's. Because of the pratik workman's declining condition, his moved them back here to [place], closer to her family, in 2019.? The patient was BIBA to the ED on 08/24 morning because of respiratory distress of and unresponsiveness.? In the ED, the patient was unresponsive.? HR was 121, BP 104/76, RR 45.? He was immed put on BiPAP, with Sat 99-100% on FiO2 100%.? Temperature was 101.5 degrees.? Was wearing a diaper.? The patient was started on normal saline. Labs in the ED notable for a white count of 17, hemoglobin 14, DDimer 50832, sodium 161, BUN/creatinine 30/1.3, bicarb 24, potassium 4.0, glucose 115, albumin 4.0, troponin 1326, BNP 252, and Lactic acid 4.1. ?Venous blood gas show ed 7.36/38/2.? Urinalysis shows no infection.? Chest x-ray shows no infiltrates.? COVID negative. Exam in the ED: Notably, the patient was not responsive to name.? He was on BiPAP, with RR in the mid-30s.? He was shaking upper and lower extrems, but this is not a typical grand mal sz.? NS was running. ?His belly was benign.?He had no edema.?He looked very dry. ? He was given IV hydration, ? mg Dilaudid, and 500 mg Keppra.? Initial impression: 1. Very end-stage Alzheimer's dementia 2. Failure to thrive.? 2? above. ? He had a CT scan Of the chest on 08/24 which revealed: IMPRESSION: 1. Destructive sternal lesion. 2. Left lower lobe infiltrate with tree-in-bud opacities in the right lower lobe suggestive of inflammatory disease past medical history of : 1. HTN. 2. Alzheimer?s dementia since 2013, on memantine and donepezil.? At that time, the patient was living in [place], [place], and his neurologist was Dr. Rae. His clinical status has been gradually declining, especially over the last year.? He hasn?t had a normal conversation in about a year.? Due to his declining condition his move him back to [place]. The last time he saw his neurologist was in March, and the last time the patient's saw his personal physician here in this area, Dr. Limon from [place], was in May. Up until this year, the patient had been able to walk, follow simple commands, and use a fork and knife to eat and bathe with assistance. ?At the beginning of this past May, the patient was admitted to [facility] for dehydration and hypernatremia.? He was discharged to home after a few days, ( didn?t want to put him in SNF), but he was readmitted a few days later w failure to thrive, poor po intake.? Also had jerky movements of his upper and lower extremities.? He had acute kidney injury again, no fever or evidence of infection.? The patient was rehydrated and started on Keppra 750 mg bid, with significant improvement in his mental status and resolution of the jerking movements of his extremities, suggesting likely seizure disorder.? But EEG was done only after he was started on the antiepileptics; the EEG was negative.? The patient was discharged on Keppra, for follow-up with Neurology as an outpatient. The patient was discharged from [facility] to [facility] on May 27, where he stayed for two weeks, then he went back home, where his has been taking care of him with assistance from her sister.? She is 65, they?ve been for 47 years.? The patient and his have two sons who live in [place], but they don?t visit often.? The patient had physical therapy at home and the would walk with him, with the walking belt. The patient's speech and his appetite have been declining over the last month and over about the last week he has not been able to walk and has eaten very little.? She thinks that he has not known who she is for some time. ?The patient's admitted him back to [facility] yesterday because she was unable to take care of him anymore.? The subject of a feeding tube has previously been discussed with the patient's and she declined.? The patient has DNR status. ECHOCARDIOGRAM for hemodynamic monitoring: Image quality:? Fair at best.? Findings: 1. Probably normal LV wall thickness 2. LV function appears hyperdynamic.? Unable to assess ejection fraction because I am unable to get clear endocardial images.? Grossly, LV systolic function is probably normal. 3. RV looks grossly normal sized. 4. Aortic valve, mitral valve, and tricuspid valve are structurally normal. 5. Unable to obtain any valvular Dopplers. 6. Unable to obtain any subcostal images, of the heart or the IVC. Review of Systems - Constitutional Reports system reviewed and no additional complaints, except as documented, Rep orts anorexia, Reports daytime sleepiness, Reports fatigue, Reports lack of energy, Reports malaise, Reports poor appetite, Reports weight loss - Eyes Reports system reviewed and no additional complaints, except as documented - ENT Reports system reviewed and no additional complaints, except as documented - Cardiovascular Reports system reviewed and no additional complaints, except as documented - Respiratory Reports no additional respiratory complaints - Gastrointestinal Reports system reviewed and no additional complaints, except as documented - Genitourinary Genitourinary: Reports no additional male genitourinary complaints - Musculoskeletal Reports system reviewed and no additional complaints, except as documented - Integumentary/Breasts Skin/Breast: Reports no additional skin complaints - Neurologic Reports system reviewed and no additional complaints, except as documented - Psychiatric Reports system reviewed and no additional complaints, except as documented - Endocrine Reports no additional endocrine complaints - Hematologic/Lymphatic Reports system reviewed and no additional complaints, except as documented - Allergic/Immunologic Reports system reviewed and no additional complaints, except as documented Oncology Screenings - ECOG Performance Status ECOG Performance Status: 2 PMFSH Social History: Social History (Last Reviewed 08/29/21 @ 22:50 by Xiao Sanderson MD) Living Situation History: Housing: Jail Alcohol History: Unable to assess alcohol history related to: Unable to respond Unable to assess alcohol history related to: Unknown Alcohol History Details: Last drink: Unknown Currently Displaying Signs/Symptoms of Alcohol Withdrawal: No Tobacco History: Patient Tobacco Use Status: Tobacco use Unknown Substance Use History: Use of substances other than those prescribed or required for medical reasons : Unable to respond Currently Displaying Signs/Symptoms of Drug Intoxication Withdrawal: No Healthcare Practices: Spiritual Healthcare Practices: unable to assess Scientology Healthcare Practices: unable to assess Cultural Healthcare Practices: unable to assess Advance Directives: Advance Directives: Yes Advance Directives Information Provided: No Advance Directives on File: No Advance Directives Date on File: 08/24/21 Occupation Assessmet: service: No Current occupational status: unemployed Home Medications and Allergies Current Medications: Current Medications Acetaminophen (Acetaminophen Supp 650 Mg Supp.Rect) 650 mg [place] Q6H PRN PRN Reason: Fever >100.4 Last Admin: 08/24/21 19:34 Dose: 650 mg Documented by: Levetiracetam 750 mg/ Sodium (Chloride) 107.5 mls @ 430 mls/hr IV Q12H COUNTS INCLUDE 234 BEDS AT THE [facility] Last Infusion: 08/27/21 06:42 Dose: Infused Documented by: Piperacillin Sod/Tazobactam (Sod 3.375 gm/ Sodium Chloride) 50 mls @ 100 mls/hr IV Q6H COUNTS INCLUDE 234 BEDS AT THE [facility] Last Infusion: 08/27/21 14:56 Dose: Infused Documented by: Potassium Chloride/Dextrose/Sod Cl () 20 meq in 1,000 mls @ 100 mls/hr IVCONT .Q10H COUNTS INCLUDE 234 BEDS AT THE [facility] Last Admin: 08/27/21 13:10 Dose: 100 mls/hr Documented by: Vancomycin HCl 1,500 mg/ (Sodium Chloride) 500 mls @ 333.333 mls/hr IV Q24H COUNTS INCLUDE 234 BEDS AT THE [facility] Last Infusion: 08/26/21 23:40 Dose: Infused Documented by: Pantoprazole Sodium (Pantoprazole Sodium 40 Mg/10 Ml Vial) 40 mg IVPUSH DAILY@0630 COUNTS INCLUDE 234 BEDS AT THE [facility] Last Admin: 08/27/21 06:17 Dose: 40 mg Documented by: Pharmacy Consult (Consult Rx Vancomycin Dosing) 1 each MISCELLANE DAILY PRN PRN Reason: Consult order Home Medications Medication Instructions Recorded Confirmed Type acetaminophen 325 mg tablet 650 mg PO BEDTIME 08/24/21 08/24/21 History albuterol sulfate 1 vial INHALATION Q4H PRN 08/24/21 08/24/21 History levetiracetam 100 mg/mL oral 7.5 ml PO Q12H 08/24/21 08/24/21 History solution melatonin 5 mg tablet 5 mg PO BEDTIME 08/24/21 08/24/21 History multivitamin with minerals-folic 2 tab PO DAILY 08/24/21 08/24/21 History acid 200 mcg chewable tablet (Multivitamin Gummies) sennosides 8.6 mg tablet (senna) 17.2 mg PO DAILY 08/24/21 08/24/21 History Allergies Allergy/AdvReac Type Severity Reaction Status Date / Time No Known Allergies Allergy Verified 08/24/21 12:39 Physical Exam Vital signs: Vital Signs Temp 98.9 F 08/27/21 15:52 Pulse 78 08/27/21 15:52 Resp 19 08/27/21 15:52 BP 140/73 H 08/27/21 15:52 Pulse Ox 97 08/27/21 15:52 Intake & Output 08/26/21 08/27/21 08/27/21 18:59 06:59 18:59 Intake Total 1315.0 / 3672.5 2357.5 / 3672.5 1100 / 1100 Output Total 500 / 1300 800 / 1300 800 / 800 Balance 815.0 / 2372.5 1557.5 / 2372.5 300 / 300 Urine Output (Average ml/kg/hr) 0.55 0.87 0.87 Intake: Intake, IV Amount 1315.0 / 3672.5 2357.5 / 3672.5 1100 / 1100 Piperacillin Sodium/Tazobactam 100 / 200 100 / 200 100 / 100 3.375 gm In 0.9 % Sodium Chloride 50 ml @ 100 mls/hr IV Q6H [facility] Rx#:[id number] levETIRAcetam 750 mg In 0.9 % 215.0 / 322.5 107.5 / 322.5 Sodium Chloride 100 ml @ 430 mls/hr IV Q12H [facility] Rx#: [id number] vancomycin HCL 1,500 mg In 0.9 500 / 500 % Sodium Chloride 500 ml @ 333. 333 mls/hr IV Q24H [facility] Rx#: [id number] KCl 20 mEq in 5% Dex/0.45% Sod 1650 / 1650 1000 / 1000 20 meq In 1,000 ml @ 100 mls/hr IVCONT .Q10H [facility] Rx#: [id number] Lactated Ringers 1,000 ml @ 60 1000 / 1000 mls/hr IVCONT .[id number] [facility] Rx#: [id number] Norepinephrine Bitartrate/NS 8 0 / 0 mg In 250 ml @ Per Protocol IVCONT .Q0M COUNTS INCLUDE 234 BEDS AT THE [facility] Rx#:[id number] Output: Output, Urine Amount 800 / 800 Output, Urine Amount (Catheter) 500 / 1300 800 / 1300 Condom 500 / 900 400 / 900 woody 400 / 400 Other: Meal Refused Yes Breakfast % Eaten 0% Number of Bowel Movements 1 Urine [place] Urine Color Airam Yellow Yellow Last Bowel Movement 08/27/21 Stool Incontinent Incontinent Stool Amount Copious Stool Color Dark Brown Yellow Stool Consistency Pasty Loose Weight 76.2 kg Weight 76.2 kg - Constitutional Present: moderate distress - Routine HEENT Exam Head: Present: normal inspection ENT: Present: mucous membranes moist - Routine Neck Exam Present: supple Hem/Onc Consult Result - Labs CBC & Chem 7: 08/26/21 05:36 08/31/21 16:28 Labs: BMP 08/27/21 08/27/21 06:20 17:00 Sodium 148 H 146 H Creatinine 0.77 Assessment and Plan Patient Active problem list reviewed?: Yes (1) Bone lesion Status: Acute Assessment and plan: This is an unfortunate 70-year-old gentleman with severe Alzheimer's disease, who has been admitted with failure to thrive, and community-acquired pneumonia. CT scan of the chest from 08/24 revealed: IMPRESSION: 1. Destructive sternal lesion. 2. Left lower lobe infiltrate with tree-in-bud opacities in the right lower lobe suggestive of inflammatory disease PLAN: Will discuss the plan with the hospitalist to see if family wants this bone lesion to be worked up. Will proceed according to the family's wishes. Thank you, Cc: 09/01 Addendum: Neuro recomended:? MR with and without contrast: 1. No definitive acute intracranial abnormalities. 2. However, there does appear to be mildly increased T2 FLAIR hyperintensity within the bilateral mesial temporal lobes and insular cortices. This may be artifactual given the degree of motion on this exam. However, sequela of underlying infectious/inflammatory limbic encephalitis could have a similar appearance in the appropriate clinical setting. 3. Moderate underlying microangiopathy and generalized cerebral volume loss. 4. Partially visualized heterogeneous lesions in the left retropharyngeal soft tissues at the level of C1 (2 cm) and left posterior musculature of the neck at the level of C1-C2 (1.6 cm). There is also a 1 cm marrow placing lesion in the h igh right parietal bone. These lesions are likely of similar etiology to the previously demonstrated destructive sternal mass and remain suspicious for underlying metastatic disease. 5. Patient has a Sternal lesion and?Partially visualized heterogeneous lesions in the left retropharyngeal soft tissues at the level of C1 (2 cm) and left posterior musculature of the neck at the level of C1-C2 (1.6 cm). There is also a 1 cm marrow placing lesion in the high right parietal bone. These lesions are likely of similar etiology to the previously demonstrated destructive sternal mass and remain suspicious for underlying metastatic disease. Intially the did not wanted workup. However now she is considering biopsy for diagnosis. 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 - Time Spent With Patient Time Spent with Patient (in minutes): 30
[2021-08-27 19:15] VITALS: BP 138/80; PULSE 88; RESP 18; TEMP 37.2; O2SAT 97
[2021-08-27 20:07] LABS: Delay - Chemistry DELAY
[2021-08-27] MEDS: vancomycin HCL 1,500 MG in 0.9 % Sodium Chloride 500 ML 333.33 MG IV (22:03)
[2021-08-27 22:19] LABS: Sodium 145 mmol/L (135-145)
[2021-08-27 23:23] VITALS: BP 163/80; PULSE 87; RESP 20; O2SAT 97
[2021-08-28] MEDS: Piperacillin Sodium/Tazobactam 3.375 GM in 0.9 % Sodium Chloride 50 ML IV ×4 (02:26→20:53)
[2021-08-28 03:20] VITALS: BP 150/71; PULSE 91; RESP 19; TEMP 36.7; O2SAT 90
[2021-08-28] MEDS: levETIRAcetam 750 MG in 0.9 % Sodium Chloride 100 ML 430 MG IV ×2 (05:32→17:33)
[2021-08-28] MEDS: Pantoprazole Sodium 40 MG/10 ML VIAL IVPUSH (06:07)
[2021-08-28 06:47] LABS: Estimated Glomerular Filt Rate > 60
[2021-08-28 07:21] VITALS: BP 169/84; PULSE 88; RESP 20; TEMP 36.7; O2SAT 93
--- NOTE | 2021-08-28 07:33 | HE.PHANOTE ---
Re Perico Last trough was 9.0, corresponding to AUC of 384. I am increasing the frequency to q12h, with next trough scheduled for 08/29 @1800. Predicted AUC 442, trough 13.4 Yvon
[2021-08-28] MEDS: vancomycin HCL 750 MG in 0.9 % Sodium Chloride 250 ML 265 MG IV ×2 (08:41→20:50)
--- NOTE | 2021-08-28 08:50 | HO.PM.IMPN ---
Subjective Subjective Date of Service: 08/28/21 Interval History: Hypernatremia, sternal lesion, acute hypoxemic respiratory failure secondary pneumonia Review of Systems Open eyes, nonverbal As per the took some bites of pureed food. Physical Exam Vital Signs: Vital Signs: Last Vital Signs Temp 98.1 F 08/28/21 07:21 Pulse 88 08/28/21 07:21 Resp 20 08/28/21 07:21 BP 169/84 H 08/28/21 07:21 Pulse Ox 93 08/28/21 07:21 Oxygen Flow Rate 60 08/24/21 16:00 BMI result Body Mass Index 24.7 Appearance: Awake ,nonverbal cvs: rrr, [id number] . res: clear to auscultation ,no rhonchii or wheezing abd: soft, bs present. ext pulses present , no cyanosis . neuro: awake ,does not follow commands. Objective Data Active Medications Acetaminophen (Acetaminophen Supp 650 Mg Supp.Rect) 650 mg RI Q6H PRN PRN Reason: Fever >100.4 Last Admin: 08/24/21 19:34 Dose: 650 mg Documented by: BOUBACAR Levetiracetam 750 mg/ Sodium (Chloride) 107.5 mls @ 430 mls/hr IV Q12H [facility] Last Infusion: 08/28/21 05:53 Dose: 0 mls/hr Documented by: EBER Piperacillin Sod/Tazobactam (Sod 3.375 gm/ Sodium Chloride) 50 mls @ 100 mls/hr IV Q6H [facility] Last Infusion: 08/28/21 03:18 Dose: 0 mls/hr Documented by: EBER Potassium Chloride/Dextrose/Sod Cl () 20 meq in 1,000 mls @ 100 mls/hr IVCONT .Q10H [facility] Last Admin: 08/27/21 23:46 Dose: 100 mls/hr Documented by: EBER Vancomycin HCl 750 mg/ Sodium (Chloride) 265 mls @ 265 mls/hr IV Q12H [facility] Last Admin: 08/28/21 08:41 Dose: 265 mls/hr Documented by: WILLIAMS Pharmacy Consult (Consult Rx Vancomycin Dosing) 1 each MISCELLANE DAILY PRN PRN Reason: Consult order Labs CBC & Chem 7: 08/26/21 05:36 08/28/21 06:04 Labs: Laboratory Results - last 24 hr 08/27/21 08/27/21 08/28/21 19:04 19:04 06:04 Estim Creat Clear Calc 89.0 Estimated GFR > 60 Specimen Comment DELAY Vancomycin Trough 9.0 L Assessment and Plan (1) Bone lesion: Status: Acute (2) Community acquired pneumonia of left lower lobe of lung: Status: Acute (3) Acute respiratory failure with hypoxia: Status: Acute Plan Acute respiratory failure with hypoxia sec Pneumonia: continue iv antibioics,oxygen support Hyponatremia: probbale due to low po intake. resolved ,continue gentle hydration toxicmetabolic encephalpathy multifactorial:? Pneumonia, as per has Alzheimer dementia unclear etiology, electrolytic abnormalities, possible seizures, severe dehydration: Seen by speech and Swallow recommended pureed diet while awake. Sternal lesion:? d/w oncology -defer further intervention for above. Patient has advanced Alzheimer, failure to thrive almost 2 months as per , and multiple medical issues as above -patient overall prognosis is very poor. Above was discussed with patient in detail length she understand but she currently want to continue conservative management. need for inpatient :toxicmetabolic encephalpathy multifactorial Quality Stroke Does the patient have a stroke diagnosis?: No VTE Prior VTE?: No VTE Risk Level:: Medical - moderate - high VTE Device Contraindication: N/A - Device Ordered VTE Drug Contraindication: Treatment Not Indicated
--- NOTE | 2021-08-28 10:13 | MHC.CLN ---
F/U PT WITH INCREASED NUTRITION RISK R/T ADVANCED DEMENTIA, LOW AAKASH AND RECENT POOR PO INTAKE X 1 WEEK SEE FULL CLINICAL NUTRITION ASSESSMENT DATED 08/26/21 DIET RX: PUREED-APPROPRIATE FISH CLEANER MACHINE TENDER FOLLOWING FOR APPROPRIATE CONSISTENCY RECOMMEND ADDING ENSURE ENLIVE TID TO INCREASE KCALS SUPP TO PROVIDE 1050KCALS, 60G PROTEIN MONITOR PO INTAKE CLOSELY
[2021-08-28 11:03] VITALS: BP 132/66; PULSE 86; RESP 19; TEMP 36.6; O2SAT 97
--- NOTE | 2021-08-28 11:34 | MHC.SL.SWA ---
Speech Pathologist Impression: Oropharyngeal dysphagia Risk of Aspiration Due to: Lethargy Neurological Condition History of Pneumonia Poor PO Intake Reduced Cognition Dysphasia Diet Status: No Change Liquid Consistency and Strategies for Safe Swallow: Liquid Intake Recommendation: Thin Liquid Intake Strategies: Small Sips No Straws Solid Food Consistency: Dietary Recommendations: Pureed (NDD1) Additional Modifications to Solid Foods: Recommend CONTINUE PUREED solids (NDD1) and THIN liquids (NO STRAWS), pills CRUSHED in PUREE. Patient requires TOTAL ASSISTANCE feeding and ASPIRATION PRECAUTIONS. Feed patient only when patient is awake and alert, otherwise hold PO until appropriate. PACKING AND FINAL ASSEMBLY SUPERVISOR will continue to follow. Oral Medication Intake: Crushed with Puree Please contact the pharmacy regarding appropriate crushable or liquid drug formulations that are available whenever modified delivery is recommended. Compensatory Strategies and Precautions to be Taken for Safe Swallow: Sitting Upright (90 deg) No Straw Small Bites and Sips Alternate Liquids/Solids Rate of Ingestion Change Oral Check Supervision While Eating and Drinking for Safe Swallow: Total Assistance (1:1) Foods to Avoid: Swallowing Recommended Treatments: Compens. Strategy Educat. Recommendation for Speech: Inpatient Speech Therapy Comment: Pt w/advanced Alzheimer's dementia, Adult FTT, has had significant decline in taking/tolerating food/liquids. Pt prior to admit was tolerating primarily puree, thin liquids. Only limited P.O. trials were completed on today's assessment as Pt tolerated only small amounts, refused some p.o. and had waxing/waning lethargy/wakefulness. Given 's report and what was observed at bedside, recommend UPGRADE pt from Clear Liquid diet to PUREE (NDD1) with THIN liquids, with Pills crushed in PUREE. Pt will need complete supervision at all administration of PO, do not attempt is pt is lethargic or refusing. Pt to small sips of liquid by tsp or controlled cup sip, NO STRAWS. Due to history of limited intake, Pt likely to benefit from more frequent attempts at meals throughout day. PACKING AND FINAL ASSEMBLY SUPERVISOR will continue to follow, monitor toleration of diet, re-assess swallow, Carlton ENRIQUEZ, Machine Heel Sprayer notified of recommendation by secure text. Frequency/Duration: Date Range for Service Req: Timeline to reassess: Production Administrative Assistant Clinican/Clinical Fellow: No Supervisory Statement: I have reviewed and agree with the student/clinical fellow's documentation: N/A Speech Language Pathologist: Jaclyn Barber M.A., [facility]-PACKING AND FINAL ASSEMBLY SUPERVISOR
[2021-08-28 15:41] VITALS: BP 124/68; PULSE 84; RESP 18; TEMP 37.2; O2SAT 96
--- NOTE | 2021-08-28 15:54 | MHC.CM.PN ---
per rounds pt will be returnin g [facility] when dcd possible dc tomorrow
[2021-08-28 19:21] VITALS: BP 130/81; PULSE 92; RESP 19; TEMP 36.7; O2SAT 98
[2021-08-28 23:11] VITALS: BP 130/78; PULSE 87; RESP 19; TEMP 37; O2SAT 97
[2021-08-29] VITALS (7 sets, daily range): BP systolic 127–154; BP diastolic 62–94; PULSE 85–91; RESP 18–20; TEMP 36.2–37.3; O2SAT 90–97
[2021-08-29 00:20] LABS: Levetiracetam Keppra 32.5 mcg/mL (12.0-46.0)
[2021-08-29] MEDS: Piperacillin Sodium/Tazobactam 3.375 GM in 0.9 % Sodium Chloride 50 ML IV ×4 (02:28→21:42)
[2021-08-29] MEDS: Albuterol/Iprat 2.5/0.5MG 3 ML AMPUL.NEB INHALE (03:15)
[2021-08-29] MEDS: levETIRAcetam 750 MG in 0.9 % Sodium Chloride 100 ML 430 MG IV (05:32)
[2021-08-29 06:18] LABS: Creatinine Clr Calc Pharmacy 86.7; Estimated Glomerular Filt Rate > 60
--- NOTE | 2021-08-29 07:11 | HE.PHANOTE ---
FLORENCE KIRK CONTINUE CURRENT DOSE OF 750MG Q12H. NEXT TROUGH IS 08/29 @1800. Yvon
--- NOTE | 2021-08-29 08:35 | HO.PM.IMPN ---
Subjective Subjective Date of Service: 08/29/21 Interval History: Hypernatremia, sternal lesion, acute hypoxemic respiratory failure secondary pneumonia Review of Systems open eyes ,nonverbal intermittent some ? jerky movements and sleepiness -? postictal. Physical Exam Vital Signs: Vital Signs: Last Vital Signs Temp 99.2 F 08/29/21 08:00 Pulse 88 08/29/21 08:00 Resp 19 08/29/21 08:00 BP 141/71 H 08/29/21 08:00 Pulse Ox 92 08/29/21 08:00 Oxygen Flow Rate 60 08/24/21 16:00 BMI result Body Mass Index 24.7 Appearance: Awake ,nonverbal cvs: rrr, [id number] . res: clear to auscultation ,no rhonchii or wheezing abd: soft, bs present. ext pulses present , no cyanosis . neuro: awake ,does not follow commands. Objective Data Active Medications Acetaminophen (Acetaminophen Supp 650 Mg Supp.Rect) 650 mg W[place] Q6H PRN PRN Reason: Fever >100.4 Last Admin: 08/24/21 19:34 Dose: 650 mg Documented by: BOUBACAR Albuterol/Ipratropium (Albuterol/Iprat 2.5/0.5mg 3 Ml Ampul.Neb) 3 ml INHALE RQ4H PRN PRN Reason: Shortness of Breath/Wheezing Last Admin: 08/29/21 03:15 Dose: 3 ml Documented by: GWEN Doxycycline Hyclate (Doxycycline Hyclate 100 Mg Tablet) 100 mg PO Q12H [facility] Levetiracetam 750 mg/ Sodium (Chloride) 107.5 mls @ 430 mls/hr IV Q12H [facility] Last Infusion: 08/29/21 05:57 Dose: 0 mls/hr Documented by: CHRIS Piperacillin Sod/Tazobactam (Sod 3.375 gm/ Sodium Chloride) 50 mls @ 100 mls/hr IV Q6H [facility] Last Infusion: 08/29/21 03:08 Dose: 0 mls/hr Documented by: CHRIS Lactated Ringer's (Lr) 1,000 mls @ 80 mls/hr IVCONT .[id number] [facility] Pharmacy Consult (Consult Rx Vancomycin Dosing) 1 each MISCELLANE DAILY PRN PRN Reason: Consult order Labs CBC & Chem 7: 08/26/21 05:36 08/29/21 05:37 Labs: Laboratory Results - last 24 hr 08/24/21 08/29/21 12:35 05:37 Estim Creat Clear Calc 86.7 Estimated GFR > 60 Levetiracetam 32.5 Assessment and Plan (1) Bone lesion: Status: Acute (2) Community acquired pneumonia of left lower lobe of lung: Status: Acute (3) Acute respiratory failure with hypoxia: Status: Acute (4) Altered mental status: Status: Acute Plan Acute respiratory failure with hypoxia sec Pneumonia: continue iv antibioics,oxygen support Hyponatremia: probbale due to low po intake. repeat sodiumlevels this afternoon toxicmetabolic encephalpathy multifactorial:? Pneumonia, as per has Alzheimer dementia unclear etiology, electrolytic abnormalities, possible seizures, severe dehydration: continue keppra added neurology eval. Seen by speech and Swallow recommended pureed diet while awake. Sternal lesion:? Added Oncology call evaluation. Patient has advanced Alzheimer, failure to thrive almost 2 months as per , and multiple medical issues as above -patient overall prognosis is very poor. Above was discussed with patient in detail length she understand but she currently want to continue conservative management. Quality Stroke Does the patient have a stroke diagnosis?: No VTE Prior VTE?: No VTE Risk Level:: Medical - moderate - high VTE Device Contraindication: N/A - Device Ordered VTE Drug Contraindication: Treatment Not Indicated
[2021-08-29] MEDS: Lactated Ringers 1,000 ML 80 ML IVCONT (10:30)
--- NOTE | 2021-08-29 11:22 | MHC.SL.SWA ---
Speech Pathologist Impression: Risk of Aspiration Due to: Lethargy Neurological Condition History of Pneumonia Poor PO Intake Reduced Cognition Dysphasia Diet Status: Liquid Consistency and Strategies for Safe Swallow: Liquid Intake Recommendation: Thin Liquid Intake Strategies: Small Sips No Straws Solid Food Consistency: Dietary Recommendations: Pureed (NDD1) Additional Modifications to Solid Foods: Recommend CONTINUE PUREED solids (NDD1) and THIN liquids (NO STRAWS), pills CRUSHED in PUREE. Patient requires TOTAL ASSISTANCE feeding and ASPIRATION PRECAUTIONS. Feed patient only when patient is awake and alert, otherwise hold PO until appropriate. PLACEMENT OFFICER will continue to follow. Oral Medication Intake: Crushed with Puree Please contact the pharmacy regarding appropriate crushable or liquid drug formulations that are available whenever modified delivery is recommended. Compensatory Strategies and Precautions to be Taken for Safe Swallow: Sitting Upright (90 deg) No Straw Small Bites and Sips Alternate Liquids/Solids Rate of Ingestion Change Oral Check Supervision While Eating and Drinking for Safe Swallow: Total Assistance (1:1) Foods to Avoid: Swallowing Recommended Treatments: Compens. Strategy Educat. Recommendation for Speech: Inpatient Speech Therapy Comment: Pt was awake this morning sitting up in bed, PLACEMENT OFFICER replaced nasal cannula which was askew. Breakfast tray was at bedside w/ evidence that P.O. had been attempted but little food was taken from tray. Tray was reintroduced w/ attempts to feed puree eggs/sausage, Cream of Wheat. On all presentations, Pt kept mouth closed, w/ trace amounts of food entering oral cavity. On small amounts of puree, Pt did initiate tongue movement/transit of trace bolus and initiated swallow after mild delay. Pt given sips of Ensure Shake from tsp and bottle sip, again w/trace amounts taken only (and some escaping anteriorly due to rejection of sip). Pt produced timely oral phase and swallow on liquids. No clinical signs of aspiration noted on small amounts fed. During session, Pt evidencing tremor/jerking behavior of hands/arms, at one point closed eyes, but then roused quickly again. Pt continues to be difficulty to feed, however per MD and other records can do better with spouse. Aspiration risk continues due to level of engagement w/ feeding, waxing/waning lethargy, limited cognition, and oral/pharyngeal dysphagia. Recommend continue on PUREE (NDD1) w/ thin liquids, provide smaller, more frequent meals in small amounts throughout day, with full assist and monitor for signs of aspiration. Frequency/Duration: Date Range for Service Req: Timeline to reassess: Manager Intermediate Clinican/Clinical Fellow: No Supervisory Statement: I have reviewed and agree with the student/clinical fellow's documentation: N/A Speech Language Pathologist: Ambreen Dash M.A., CCC-PLACEMENT OFFICER
[2021-08-29] MEDS: levETIRAcetam Oral Soln 500 MG/5 ML 750 MG PO (19:09)
[2021-08-29 19:10] LABS: Vancomycin Trough 10.8 mcg/mL (10.0-20.0)
--- NOTE | 2021-08-29 22:48 | W.PM.IDCN ---
History of Present Illness Data of Consult Service Date: 08/29/21 Requesting physician: Abebe Jain Primary Care Provider: Iveth Limon MD HPI Reason for consult: confusion and lethargy,pneumonia He presents with one day confusion and lethargy. He has no known COVID. CT chest has basilar infiltrate. He has no known MRSA. Review of Systems Review of Systems: Yes Unobtainable due to mental status PMFSH Family History Family history: reviewed and not pertinent Social History Social History Housing: Halfway Unable to assess alcohol history related to: Unable to respond and Unknown Alcohol intake: never Patient Tobacco Use Status: Tobacco use Unknown Use of substances other than those prescribed or required for medical reasons: Unable to respond Currently Displaying Signs/Symptoms of Drug Intoxication Withdrawal: No Spiritual Healthcare Practices: unable to assess Mu-Ism Healthcare Practices: unable to assess Cultural Healthcare Practices: unable to assess Advance Directives: Yes Advance Directives Information Provided: No Advance Directives on File: No Advance Directives Date on File: 08/24/21 service: No Current occupational status: unemployed Meds Allergies Allergy/AdvReac Type Severity Reaction Status Date / Time No Known Allergies Allergy Verified 08/24/21 12:39 Active Medications: Current Medications Acetaminophen (Acetaminophen Supp 650 Mg Supp.Rect) 650 mg [place] Q6H PRN PRN Reason: Fever >100.4 Last Admin: 08/24/21 19:34 Dose: 650 mg Documented by: Albuterol/Ipratropium (Albuterol/Iprat 2.5/0.5mg 3 Ml Ampul.Neb) 3 ml INHALE RQ4H PRN PRN Reason: Shortness of Breath/Wheezing Last Admin: 08/29/21 03:15 Dose: 3 ml Documented by: Doxycycline Hyclate (Doxycycline Hyclate 100 Mg Tablet) 100 mg PO Q12H YUKO Last Admin: 08/29/21 21:47 Dose: Not Given Documented by: Piperacillin Sod/Tazobactam (Sod 3.375 gm/ Sodium Chloride) 50 mls @ 100 mls/hr IV Q6H YUKO Last Infusion: 08/29/21 22:05 Dose: Infused Documented by: Lactated Ringer's (Lr) 1,000 mls @ 80 mls/hr IVCONT .[id number] [id number] Last Infusion: 08/29/21 22:48 Dose: 80 mls/hr Documented by: Levetiracetam (Levetiracetam Oral Soln 500 Mg/5 Ml) 750 mg PO Q12H REPLACED BY [facility] Last Admin: 08/29/21 19:09 Dose: 750 mg Documented by: Pharmacy Consult (Consult Rx Vancomycin Dosing) 1 each MISCELLANE DAILY PRN PRN Reason: Consult order Home Medications Medication Instructions Recorded Confirmed Last Taken Type acetaminophen 325 mg tablet 650 mg PO BEDTIME 08/24/21 08/24/21 Unknown History albuterol sulfate 1 vial INHALATION Q4H PRN 08/24/21 08/24/21 Unknown History levetiracetam 100 mg/mL oral 7.5 ml PO Q12H 08/24/21 08/24/21 Unknown History solution melatonin 5 mg tablet 5 mg PO BEDTIME 08/24/21 08/24/21 Unknown History multivitamin with minerals-folic 2 tab PO DAILY 08/24/21 08/24/21 Unknown History acid 200 mcg chewable tablet (Multivitamin Gummies) sennosides 8.6 mg tablet (senna) 17.2 mg PO DAILY 08/24/21 08/24/21 Unknown History Physical Exam Vital Signs: Vital Signs: Last Vital Signs Temp 98.5 F 08/29/21 18:56 Pulse 91 08/29/21 18:56 Resp 18 08/29/21 18:56 BP 136/65 08/29/21 18:56 Pulse Ox 96 08/29/21 18:56 Oxygen Flow Rate 60 08/24/21 16:00 BMI result Body Mass Index 24.7 Const: General: cooperative Eyes: General: appearance normal, both eyes and all related structures Resp: Effort & Inspection: normal respiratory effort (crackles right base) Cardio: Rate: regular rate Rhythm: regular rhythm GI: Palpation (GI): Soft to palpation and nontender Skin: General skin exam: no rashes or lesions noted Results Labs CBC & Chem 7: 08/26/21 05:36 08/29/21 05:37 Labs: BMP 08/29/21 05:37 Creatinine 0.77 Microbiology Microbiology Results: Microbiology 08/24/21 13:04 Blood - Venous Blood Culture - Final No growth after 5 days. 08/24/21 12:35 Blood - Venous Blood Culture - Final No growth after 5 days. Assessment and Plan (1) Community acquired pneumonia of left lower lobe of lung: Status: Acute He has possible aspiration He has dementia (2) Acute respiratory failure with hypoxia: Status: Acute Plan Zosyn and Doxycycline agree 5-7 day IV. Check MRSA swab and urine Legionella if not done.
--- NOTE | 2021-08-30 | EEG_ITS ---
This is a 16-channel EEG with an EKG lead. The patient is reported restless and awake during the tracing. Background EEG rhythm is low to medium amplitude, mixed, theta delta with no obvious asymmetry or paroxysmal tendency. Photic stimulation and hyperventilation were not performed. No definite sharp wave spikes or paroxysmal tendency noted. IMPRESSION: Moderate generalized slowing with no evidence of seizure disorder. MD HILDA Huizar/YAHIR / [id number]
[2021-08-30] MEDS: Piperacillin Sodium/Tazobactam 3.375 GM in 0.9 % Sodium Chloride 50 ML IV ×4 (02:10→20:11)
[2021-08-30 03:42] VITALS: BP 164/72; PULSE 98; RESP 16; TEMP 36.8; O2SAT 93
[2021-08-30] MEDS: Lactated Ringers 1,000 ML 80 ML IVCONT (06:12)
--- NOTE | 2021-08-30 07:39 | P.PNIM_ITS ---
Subjective Subjective Date of Service: 08/30/21 Interval History: Hypernatremia, sternal lesion, acute hypoxemic respiratory failure secondary pneumonia,seizures Review of Systems open eyes ,nonverbal As per eating very little still. Physical Exam Vital Signs: Vital Signs: Last Vital Signs Temp 98.2 F 08/30/21 03:42 Pulse 98 08/30/21 03:42 Resp 16 08/30/21 03:42 BP 164/72 H 08/30/21 03:42 Pulse Ox 93 08/30/21 03:42 Oxygen Flow Rate 60 08/24/21 16:00 BMI result Body Mass Index 24.7 Appearance: Awake ,nonverbal cvs: rrr, [id number] . res: clear to auscultation ,no rhonchii or wheezing abd: soft, bs present. ext pulses present , no cyanosis . neuro: awake ,does not follow commands Objective Data Active Medications Acetaminophen (Acetaminophen Supp 650 Mg Supp.Rect) 650 mg [place] Q6H PRN PRN Reason: Fever >100.4 Last Admin: 08/24/21 19:34 Dose: 650 mg Documented by: BOUBACAR Albuterol/Ipratropium (Albuterol/Iprat 2.5/0.5mg 3 Ml Ampul.Neb) 3 ml INHALE R Q4H PRN PRN Reason: Shortness of Breath/Wheezing Last Admin: 08/29/21 03:15 Dose: 3 ml Documented by: GWEN Doxycycline Hyclate (Doxycycline Hyclate 100 Mg Tablet) 100 mg PO Q12H [facility] Last Admin: 08/29/21 21:47 Dose: Not Given Documented by: OTTO Non-Admin Reason: Patient Refused Piperacillin Sod/Tazobactam (Sod 3.375 gm/ Sodium Chloride) 50 mls @ 100 mls/hr IV Q6H [facility] Last Infusion: 08/30/21 02:39 Dose: 0 mls/hr Documented by: OTTO Lactated Ringer's (Lr) 1,000 mls @ 80 mls/hr IVCONT .[id number] [facility] Last Admin: 08/30/21 06:12 Dose: 80 mls/hr Documented by: OTTO Levetiracetam (Levetiracetam Oral Soln 500 Mg/5 Ml) 750 mg PO Q12H [facility] Last Admin: 08/30/21 05:14 Dose: Not Given Documented by: OTTO Non-Admin Reason: Patient Refused Pharmacy Consult (Consult Rx Vancomycin Dosing) 1 each MISCELLANE DAILY PRN PRN Reason: Consult order Labs CBC & Chem 7: 08/26/21 05:36 08/29/21 05:37 Labs: Laboratory Results - last 24 hr 08/29/21 18:27 Vancomycin Trough 10.8 Microbiology Microbiology Results: Microbiology 08/24/21 13:04 Blood Culture - Final Blood - Venous No growth after 5 days. 08/24/21 12:35 Blood Culture - Final Blood - Venous No growth after 5 days. Assessment and Plan (1) Toxic metabolic encephalopathy: Status: Acute (2) Bone lesion: Status: Acute (3) Community acquired pneumonia of left lower lobe of lung: Status: Acute (4) Acute respiratory failure with hypoxia: Status: Acute Plan Acute respiratory failure with hypoxia sec Pneumonia: continue iv antibioics yet unable to take po antibiotics currently ,oxygen support Hyponatremia: probbale due to low po intake. improved. encourage po hydration, ensure ,nutritional eval toxic/metabolic encephalpathy multifactorial:? 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 Seen by speech and Swallow recommended pureed diet while awake. 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 Above was discussed with patient in detail length she understand but she currently want to continue conservative management. does not want do feedings if situation comes to that. Quality Stroke Does the patient have a stroke diagnosis?: No VTE Prior VTE?: No VTE Risk Level:: Medical - moderate - high VTE Device Contraindication: N/A - Device Ordered VTE Drug Contraindication: Treatment Not Indicated
[2021-08-30 07:43] VITALS: BP 170/83; PULSE 87; RESP 19; TEMP 36.9; O2SAT 94
--- NOTE | 2021-08-30 08:48 | MHC.CDI.CONC ---
CDI Concurrent Query Documentation Clarification: PHYSICIAN'S DOCUMENTATION REQUEST Date of Query: 08/30/21 0848 Patient Name: Krishna Mccullough Admit Date: 08/24/21 Dear Doctor, A review of the medical record indicates additional documentation may be needed. Please review below and update the documentation accordingly. Clinical Indicators: Documentation on progress note dated [ ] included the diagnosis of sepsis. The patient's infectious clinical indicators include: Risk Factors/Clinical Indicators/Treatments ED: 08/24 - leukocytosis with left shift, fever and tachycardia with lactic acidosis of 4, change in mental status, patient met criteria for septic shock. H&P: Sepsis protocol ICU Event Note 08/24 - Severe sepsis criteria due to hypotension, lactate >4. ICU Note: Septic shock due to bilateral pneumonia. WBC 17.1 LA 4.1 Temp 102.7 BP 51/32 - Vancomycin Zosyn IV fluids. Recognized standard criteria for this condition and other infectious definitions includes: Bacteremia Abnormal laboratory test - does not indicate a clinically ill patient Sepsis Systemic manifestations of infection, with 2 or more SIRS criteria which include: Fever > 100.4?F or hypothermia < 96.8?F Leukocytosis ? WBC > 12,000 or leukopenia, WBC < 4,000, or > 10% bands Tachycardia- > 90 beats/minute Tachypnea- RR > 20 breaths/minute or PaCO2 < 32mmHg Source: Merck Manual 2013 Documentation should include the known or suspected organism, and the underlying infection, such as UTI or pneumonia Severe Sepsis Sepsis with associated acute organ dysfunction, such as renal or respiratory failure Documentation should indicate the association between the sepsis and the organ dysfunction Septic Shock Severe sepsis with associated with circulatory failure, evidenced by hypotension and hypoperfusion Based on the above information and the recognized standard for sepsis, could you please clarify in the Progress Notes if this diagnoses is still accurate and reflective of the patient's condition to ensure quality of the medical record. Severe sepsis with septic shock: Resolved, Treating, Rule out etc. Sepsis is/was present and is a clinical diagnosis based on (please include this additional support in the medical record) After study (the condition) has been ruled out Other (please specify) Unable to determine Use of terms such as suspected, likely, concern for, or probable (associated with a specific diagnosis that is being evaluated, monitored, or treated as if it exists) are acceptable and can be coded in the inpatient setting, when documented at the time of discharge. Thank you, Zenobia Young [facility], CDIS Extension: [phone] Please use your independent medical judgment in providing your response. THIS QUERY IS PART OF THE PERMANENT MEDICAL RECORD Provider Response: Other Other Diagnosis: sepsis resolved
--- NOTE | 2021-08-30 10:40 | MHC.CLN ---
F/U PT WITH INCREASED NUTRITION RISK R/T ADVANCED DEMENTIA, LOW AAKASH AND RECENT POOR PO INTAKE X 1 WEEK SEE FULL CLINICAL NUTRITION ASSESSMENT DATED 08/26/21 PO INTAKE 50-75% DIET RX: PUREED-APPROPRIATE OFFICE MACHINES SALES REPRESENTATIVE FOLLOWING FOR APPROPRIATE CONSISTENCY PT RECEIVING ENSURE ENLIVE TID TO INCREASE KCALS PROVIDES 1050KCALS, 60G PROTEIN MONITOR PO INTAKE CLOSELY
[2021-08-30 11:31] VITALS: BP 149/67; PULSE 90; RESP 19; TEMP 36.7; O2SAT 95
--- NOTE | 2021-08-30 12:11 | PM.NEUROCN ---
History of Present Illness Data of Consult Service Date: 08/30/21 Primary Care Provider: Iveth Limon MD [facility] Reason for consult: Seizure disorder 70 years old man who carried diagnosis of severe dementia and was cared by his at home except that he was moved to a senior living just a day before he came to hospital. Apparently he was admitted [facility] recently when he was diagnosed with seizure disorder. Even at that time his serum sodium was high and his body was shaking and according to his he was given Keppra 750 twice a day and he improved. This time he was admitted again with change in mental status and his serum sodium was 152 and he was having body jerking and the question was if this was seizure or not. Overall he was doing better today. Review of Systems Review of Systems: Not able to answer any questions PMFSH Family History Family history: reviewed and not pertinent Social History Social History Housing: Alf Unable to assess alcohol history related to: Unable to respond and Unknown Alcohol intake: never Patient Tobacco Use Status: Tobacco use Unknown Use of substances other than those prescribed or required for medical reasons: Unable to respond Currently Displaying Signs/Symptoms of Drug Intoxication Withdrawal: No Spiritual Healthcare Practices: unable to assess Yarsanism Healthcare Practices: unable to assess Cultural Healthcare Practices: unable to assess Advance Directives: Yes Advance Directives Information Provided: No Advance Directives on File: No Advance Directives Date on File: 08/24/21 service: No Current occupational status: unemployed Meds Allergies Allergy/AdvReac Type Severity Reaction Status Date / Time No Known Allergies Allergy Verified 08/24/21 12:39 Active Medications: Current Medications Acetaminophen (Acetaminophen Supp 650 Mg Supp.Rect) 650 mg [place] Q6H PRN PRN Reason: Fever >100.4 Last Admin: 08/24/21 19:34 Dose: 650 mg Documented by: Albuterol/Ipratropium (Albuterol/Iprat 2.5/0.5mg 3 Ml Ampul.Neb) 3 ml INHALE RQ4H PRN PRN Reason: Shortness of Breath/Wheezing Last Admin: 08/29/21 03:15 Dose: 3 ml Documented by: Doxycycline Hyclate (Doxycycline Hyclate 100 Mg Tablet) 100 mg PO Q12H YUKO Last Admin: 08/30/21 10:36 Dose: 100 mg Documented by: Piperacillin Sod/Tazobactam (Sod 3.375 gm/ Sodium Chloride) 50 mls @ 100 mls/hr IV Q6H [facility] Last Infusion: 08/30/21 11:32 Dose: Infused Documented by: Lactated Ringer's (Lr) 1,000 mls @ 80 mls/hr IVCONT .[id number] [facility] Last Infusion: 08/30/21 10:34 Dose: Infused Documented by: Levetiracetam (Levetiracetam Oral Soln 500 Mg/5 Ml) 750 mg PO Q12H [facility] Last Admin: 08/30/21 05:14 Dose: Not Given Documented by: Pharmacy Consult (Consult Rx Vancomycin Dosing) 1 each MISCELLANE DAILY PRN PRN Reason: Consult order Home Medications Medication Instructions Recorded Confirmed Last Taken Type acetaminophen 325 mg tablet 650 mg PO BEDTIME 08/24/21 08/24/21 Unknown History albuterol sulfate 1 vial INHALATION Q4H PRN 08/24/21 08/24/21 Unknown History levetiracetam 100 mg/mL oral 7.5 ml PO Q12H 08/24/21 08/24/21 Unknown History solution melatonin 5 mg tablet 5 mg PO BEDTIME 08/24/21 08/24/21 Unknown History multivitamin with minerals-folic 2 tab PO DAILY 08/24/21 08/24/21 Unknown History acid 200 mcg chewable tablet (Multivitamin Gummies) sennosides 8.6 mg tablet (senna) 17.2 mg PO DAILY 08/24/21 08/24/21 Unknown History Physical Exam Vital Signs: Vital Signs: Last Vital Signs Temp 98.0 F 08/30/21 11:31 Pulse 90 08/30/21 11:31 Resp 19 08/30/21 11:31 BP 149/67 H 08/30/21 11:31 Pulse Ox 95 08/30/21 11:31 Oxygen Flow Rate 60 08/24/21 16:00 BMI result Body Mass Index 24.7 Neuro: Other: Alert and awake looking around but did not make eye contact and did not follow commands. He did not say a word. It was not clear if he was comprehending. His stated that he has not been talking. Face was symmetrical. Visual travis were difficult to determine. He was able to move his eyes left and right though not when asked to do so. Deep tendon reflexes are absent with flexor plantars. There was no any abnormal movement a posturing. Results Labs CBC & Chem 7: 08/26/21 05:36 08/29/21 05:37 Microbiology Microbiology Results: Microbiology 08/24/21 13:04 Blood - Venous Blood Culture - Final No growth after 5 days. 08/24/21 12:35 Blood - Venous Blood Culture - Final No growth after 5 days. Assessment and Plan (1) Toxic metabolic encephalopathy: Status: Acute 70 years old man with underlying diagnosis of dementia presented with change in mental status with serum sodium of 152. This morning he was doing somewhat better. According to his he was given diagnosis of seizure when he was at [facility] in somewhat similar situation and was put on Keppra. At this time he was not communicating, which apparently was his baseline. It is really etiology was unclear. I had noted that he was given diagnosis of al dimer and according to his initial diagnosis was made few years ago. This was somewhat atypical for Mary Jane brasher except that it is wary aunt, primary progressive aphasia can present this way. Without any brain scan further definition is difficult to make. In fact it would be important to make a definitive diagnosis and also to rule out epileptic nature of his inability to speak. According to his he did not have any brain scan for number of years. I would recommend an MRI of brain without contrast to see if we find features typical of primary progressive aphasia in which case selective left frontal atrophy is noted. An EEG is also recommended to rule out any possibility of epileptic reason for inability to communicate or epileptic encephalopathy. Otherwise mainstay of management is correction of electrolyte abnormalities and hydration. Procedures Date of Service Date of Service: 08/30/21
--- NOTE | 2021-08-30 13:10 | MHC.CM.PN ---
per rounds pt to have a neuro consult today dc plan remains return to [facility] when dcd
[2021-08-30 16:00] VITALS: BP 117/58; PULSE 85; RESP 18; TEMP 37.6; O2SAT 94
[2021-08-30] MEDS: levETIRAcetam Oral Soln 500 MG/5 ML 750 MG PO (19:18)
[2021-08-30 19:45] VITALS: BP 150/70; PULSE 91; RESP 18; TEMP 37.3; O2SAT 95
[2021-08-30] MEDS: Doxycycline Hyclate 100 MG in 0.9 % Sodium Chloride 250 ML 166.67 MG IV (22:38)
[2021-08-30 23:35] VITALS: BP 153/72; PULSE 87; RESP 19; TEMP 36.7; O2SAT 99
[2021-08-31] MEDS: Piperacillin Sodium/Tazobactam 3.375 GM in 0.9 % Sodium Chloride 50 ML IV ×3 (01:54→13:57)
[2021-08-31 03:31] VITALS: BP 164/74; PULSE 89; RESP 19; TEMP 36.4; O2SAT 93
[2021-08-31] MEDS: levETIRAcetam Oral Soln 500 MG/5 ML 750 MG PO ×2 (05:57→17:48)
[2021-08-31 08:00] VITALS: BP 159/92; PULSE 86; RESP 20; TEMP 36.6; O2SAT 95
[2021-08-31] MEDS: Doxycycline Hyclate 100 MG in 0.9 % Sodium Chloride 250 ML 166.67 MG IV ×2 (11:24→22:14)
[2021-08-31 12:00] VITALS: BP 168/86; PULSE 89; RESP 20; TEMP 36.9; O2SAT 97
--- NOTE | 2021-08-31 13:25 | P.PNIM_ITS ---
Subjective Subjective Date of Service: 09/01/21 Interval History: acute hypoxemic respiratory failure secondary pneumonia,seizures,sternal lesion Review of Systems Hypoxia seems improving mental status seems similar as yesterday. Awake and is at bedside. Physical Exam Vital Signs: Vital Signs: Last Vital Signs Temp 98.4 F 08/31/21 12:00 Pulse 89 08/31/21 12:00 Resp 20 08/31/21 12:00 BP 168/86 H 08/31/21 12:00 Pulse Ox 97 08/31/21 12:00 Oxygen Flow Rate 60 08/24/21 16:00 BMI result Body Mass Index 24.7 ?Appearance: Awake ,nonverbal cvs: rrr, [id number] . res: air enrty fair ,no rales or wheezing abd: soft, bs present. ext pulses present , no cyanosis . neuro: awake ,does not follow commands Objective Data Active Medications Acetaminophen (Acetaminophen Supp 650 Mg Supp.Rect) 650 mg MT Q6H PRN PRN Reason: Fever >100.4 Last Admin: 08/24/21 19:34 Dose: 650 mg Documented by: BOUBACAR Albuterol/Ipratropium (Albuterol/Iprat 2.5/0.5mg 3 Ml Ampul.Neb) 3 ml INHALE RQ4H PRN PRN Reason: Shortness of Breath/Wheezing Last Admin: 08/29/21 03:15 Dose: 3 ml Documented by: GWEN Piperacillin Sod/Tazobactam (Sod 3.375 gm/ Sodium Chloride) 50 mls @ 100 mls/hr IV Q6H [facility] Last Infusion: 08/31/21 10:40 Dose: 0 mls/hr Documented by: ROHIT Doxycycline Hyclate 100 mg/ (Sodium Chloride) 250 mls @ 166.67 mls/hr IV Q12H [facility] Last Infusion: 08/31/21 13:11 Dose: 0 mls/hr Documented by: ROHIT Levetiracetam (Levetiracetam Oral Soln 500 Mg/5 Ml) 750 mg PO Q12H [facility] Last Admin: 08/31/21 05:57 Dose: 750 mg Documented by: TERESA Pharmacy Consult (Consult Rx Vancomycin Dosing) 1 each MISCELLANE DAILY PRN PRN Reason: Consult order Labs CBC & Chem 7: 08/26/21 05:36 08/31/21 16:28 Assessment and Plan (1) Toxic metabolic encephalopathy: Status: Acute (2) Bone lesion: Status: Acute Plan 70 y/o M possible advanced Alzheimer's dementia-admitted to ICU: electrolytic abnormalities, seizures, possible sepsis and pneumonia and acute hypoxemic respiratory failure-patient was started on antibiotics, go treatment for hyponatremia as well as started on Keppra for possible seizure: Subsequently transferred to floor for further management. Acute respiratory failure with hypoxia sec Pneumonia: Improving continue iv antibioics day 8yet unable to take po antibiotics currently ,oxygen support Hyponatremia: probbale due to low po intake. improved. encourage po hydration, ensure ,nutritional following toxic/metabolic encephalpathy multifactorial:? Pneumonia, as per has Alzheimer dementia unclear etiology, electrolytic abnormalities, possible seizures, severe dehydration, possible related to paraneoplastic? 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 Seen by speech and Swallow recommended pureed diet while awake. trun patient frequently Neuro recommended to add Solu-Medrol 1 g for 3 days. Sternal lesion and Partially visualized heterogeneous lesions in the left retropharyngeal soft tissues at the level of C1 (2 cm) and left posterior musculature of the neck at the level of C1-C2 (1.6 cm). There is also a 1 cm marrow placing lesion in the high right parietal bone. These lesions are likely of similar etiology to the previously demonstrated destructive sternal mass and remain suspicious for underlying metastatic disease :as per d/w oncology-intialy did not wanted workup , afterwards she d/w above with neuro -she is considering biopsy for diagnosis for now. neuro also recomended: MR with and without contrast for now, depending upon that may need further workup on Thursday . 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 Above was discussed with patient in detail length she understand -agrees with stephane matias Quality Stroke Does the patient have a stroke diagnosis?: No VTE Prior VTE?: No VTE Risk Level:: Medical - moderate - high VTE Device Contraindication: N/A - Device Ordered VTE Drug Contraindication: Treatment Not Indicated
[2021-08-31 16:00] VITALS: BP 158/69; PULSE 68; RESP 18; TEMP 37.1; O2SAT 96
[2021-08-31 16:55] LABS: Anion Gap 12 (12-20); Blood Urea Nitrogen 8 mg/dL (9-16); Calcium 8.4 mg/dL (8.4-10.2); Carbon Dioxide 24 mmol/L (22-29); Chloride 111 mmol/L (96-108); Creatinine Clr Calc Pharmacy 92.7; Estimated Glomerular Filt Rate > 60; Glucose Random 99 mg/dL (60-115); Potassium 3.8 mmol/L (3.3-5.1); Sodium 143 mmol/L (135-145)
[2021-08-31] MEDS: Albumin Human 25 % 100 ML IV ×2 (17:38→21:09)
[2021-08-31] MEDS: methylPREDNISolone Sod Succ 1,000 MG in 0.9 % Sodium Chloride 50 ML 66 MG IV (18:53)
[2021-08-31 19:35] VITALS: BP 140/61; PULSE 86; RESP 19; TEMP 37.1; O2SAT 93
[2021-08-31] MEDS: Dextrose 5 % and 0.45 % NaCl 1,000 ML 60 ML IVCONT (23:48)
[2021-09-01] VITALS (7 sets, daily range): BP systolic 129–162; BP diastolic 6–91; PULSE 66–89; RESP 14–20; TEMP 36.3–37.2; O2SAT 93–98
[2021-09-01] MEDS: levETIRAcetam Oral Soln 500 MG/5 ML 750 MG PO ×2 (05:32→17:25)
--- NOTE | 2021-09-01 08:57 | P.PNIM_ITS ---
Subjective Subjective Date of Service: 09/01/21 Interval History: Encephalopathy Review of Systems Hypoxia seems improving mental status seems similar as yesterday. Awake and is at bedside. Physical Exam Vital Signs: Vital Signs: Last Vital Signs Temp 97.3 F 09/01/21 04:00 Pulse 76 09/01/21 04:00 Resp 20 09/01/21 04:00 BP 143/75 H 09/01/21 04:00 Pulse Ox 95 09/01/21 04:00 Oxygen Flow Rate 60 08/24/21 16:00 BMI result Body Mass Index 24.7 Appearance: Awake ,nonverbal cvs: rrr, [id number] . res: air enrty fair ,no rales or wheezing abd: soft, bs present. ext pulses present , no cyanosis . neuro: awake ,does not follow commands Objective Data Active Medications Acetaminophen (Acetaminophen Supp 650 Mg Supp.Rect) 650 mg ND Q6H PRN PRN Reason: Fever >100.4 Last Admin: 08/24/21 19:34 Dose: 650 mg Documented by: BOUBACAR Albuterol/Ipratropium (Albuterol/Iprat 2.5/0.5mg 3 Ml Ampul.Neb) 3 ml INHALE RQ4H PRN PRN Reason: Shortness of Breath/Wheezing Last Admin: 08/29/21 03:15 Dose: 3 ml Documented by: GWEN Doxycycline Hyclate 100 mg/ (Sodium Chloride) 250 mls @ 166.67 mls/hr IV Q12H [facility] Last Infusion: 08/31/21 23:49 Dose: 0 mls/hr Documented by: TERESA Dextrose/Sodium Chloride (D51/2ns) 1,000 mls @ 60 mls/hr IVCONT .[id number] [facility] Last Admin: 08/31/21 23:48 Dose: 60 mls/hr Documented by: TERESA Methylprednisolone Sodium Succinate 1,000 mg/ Sodium Chloride 66 mls @ 66 mls/hr IV DAILY [facility] Last Infusion: 08/31/21 20:22 Dose: 0 mls/hr Documented by: ROHIT Piperacillin Sod/Tazobactam (Sod 3.375 gm/ Sodium Chloride) 50 mls @ 100 mls/hr IV Q6H [facility] Stop: 05/24/22 08:59 Levetiracetam (Levetiracetam Oral Soln 500 Mg/5 Ml) 750 mg PO Q12H [id number] Last Admin: 09/01/21 05:32 Dose: 750 mg Documented by: TERESA Labs CBC & Chem 7: 08/26/21 05:36 08/31/21 16:28 Labs: Laboratory Results - last 24 hr 08/31/21 16:28 Anion Gap 12 Estim Creat Clear Calc 92.7 Estimated GFR > 60 Random Glucose 99 Calcium 8.4 Assessment and Plan (1) Toxic metabolic encephalopathy: Status: Acute (2) Bone lesion: Status: Acute Plan 70 y/o M possible advanced Alzheimer's dementia-admitted to ICU: electrolytic abnormalities, seizures, possible sepsis and pneumonia and acute hypoxemic respiratory failure-patient was started on antibiotics, go treatment for hyponatremia as well as started on Keppra for possible seizure:? Subsequently transferred to floor for further management. Acute respiratory failure with hypoxia sec Pneumonia: Improving continue iv antibioics day 8yet unable to take po antibiotics currently ,oxygen support Hyponatremia: probbale due to low po intake. improved. encourage po hydration, ensure ,nutritional following toxic/metabolic encephalpathy multifactorial:? Pneumonia, as per has Alzheimer dementia unclear etiology, electrolytic abnormalities, possible seizures, severe dehydration, possible related to paraneoplastic? 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 Seen by speech and Swallow recommended pureed diet while awake. trun patient frequently Neuro recommended to add Solu-Medrol 1 g for 3 days. Sternal lesion and?Partially visualized heterogeneous lesions in the left retropharyngeal soft tissues at the level of C1 (2 cm) and left posterior musculature of the neck at the level of C1-C2 (1.6 cm). There is also a 1 cm marrow placing lesion in the high right parietal bone. These lesions are likely of similar etiology to the previously demonstrated destructive sternal mass and remain suspicious for underlying metastatic disease :as per d/w oncology-intialy did not wanted workup , afterwards she d/w above with neuro -she is unclear for biopsy diagnosis for now. neuro also recomended:? MR contrast for now, depending upon that may need further workup on Thursday . 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 Quality Stroke Does the patient have a stroke diagnosis?: No VTE Prior VTE?: No VTE Risk Level:: Medical - moderate - high VTE Device Contraindication: N/A - Device Ordered VTE Drug Contraindication: Treatment Not Indicated
[2021-09-01] MEDS: Piperacillin Sodium/Tazobactam 3.375 GM in 0.9 % Sodium Chloride 50 ML IV ×3 (09:26→20:36)
[2021-09-01] MEDS: methylPREDNISolone Sod Succ 1,000 MG in 0.9 % Sodium Chloride 50 ML 66 MG IV (10:40)
[2021-09-01] MEDS: Doxycycline Hyclate 100 MG in 0.9 % Sodium Chloride 250 ML 166.67 MG IV ×2 (13:30→20:37)
[2021-09-01] MEDS: Dextrose 5 % and 0.45 % NaCl 1,000 ML 60 ML IVCONT (15:17)
[2021-09-02] MEDS: Piperacillin Sodium/Tazobactam 3.375 GM in 0.9 % Sodium Chloride 50 ML IV ×2 (02:09→08:48)
[2021-09-02 03:22] VITALS: BP 138/64; PULSE 58; RESP 20; TEMP 37; O2SAT 98
[2021-09-02] MEDS: Dextrose 5 % and 0.45 % NaCl 1,000 ML 60 ML IVCONT (05:05)
[2021-09-02] MEDS: levETIRAcetam Oral Soln 500 MG/5 ML 750 MG PO ×2 (05:05→17:00)
[2021-09-02 07:21] VITALS: BP 149/73; PULSE 62; RESP 18; TEMP 36.6; O2SAT 93
--- NOTE | 2021-09-02 07:27 | P.PNIM_ITS ---
Subjective Subjective Date of Service: 09/02/21 Interval History: Encephalopathy Review of Systems Shortness of breath gunn seems more comfortable, seems slightly more awake. No new event Overnight as per staff patient, no fevers. went for EEG today Physical Exam Vital Signs: Vital Signs: Last Vital Signs Temp 97.9 F 09/02/21 07:21 Pulse 62 09/02/21 07:21 Resp 18 09/02/21 07:21 BP 149/73 H 09/02/21 07:21 Pulse Ox 93 09/02/21 07:21 Oxygen Flow Rate 60 08/24/21 16:00 BMI result Body Mass Index 24.7 Appearance: Awake ,nonverbal cvs: rrr, [id number] . res: fair air entry, few rhonchii abd: soft, bs present. ext pulses present , no cyanosis . neuro: awake ,does not follow commands Objective Data Active Medications Acetaminophen (Acetaminophen Supp 650 Mg Supp.Rect) 650 mg DE Q6H PRN PRN Reason: Fever >100.4 Last Admin: 08/24/21 19:34 Dose: 650 mg Documented by: BOUBACAR Albuterol/Ipratropium (Albuterol/Iprat 2.5/0.5mg 3 Ml Ampul.Neb) 3 ml INHALE RQ4H PRN PRN Reason: Shortness of Breath/Wheezing Last Admin: 08/29/21 03:15 Dose: 3 ml Documented by: GWEN Doxycycline Hyclate 100 mg/ (Sodium Chloride) 250 mls @ 166.67 mls/hr IV Q12H [facility] Last Infusion: 09/01/21 22:36 Dose: 0 mls/hr Documented by: GILLIAN Dextrose/Sodium Chloride (D51/2ns) 1,000 mls @ 60 mls/hr IVCONT .[id number] [facility] Last Admin: 09/02/21 05:05 Dose: 60 mls/hr Documented by: GILLIAN Methylprednisolone Sodium Succinate 1,000 mg/ Sodium Chloride 66 mls @ 66 mls/hr IV DAILY [facility] Last Infusion: 09/01/21 12:06 Dose: 66 mls/hr Documented by: NICOLAS Piperacillin Sod/Tazobactam (Sod 3.375 gm/ Sodium Chloride) 50 mls @ 100 mls/hr IV Q6H [facility] Stop: 09/03/21 08:59 Last Infusion: 09/02/21 02:43 Dose: 0 mls/hr Documented by: GILLIAN Levetiracetam (Levetiracetam Oral Soln 500 Mg/5 Ml) 750 mg PO Q12H [id number] Last Admin: 09/02/21 05:05 Dose: 750 mg Documented by: GILLIAN Labs CBC & Chem 7: 09/02/21 08:49 09/02/21 08:49 Labs: Laboratory Results - last 24 hr 08/24/21 08/24/21 08/24/21 12:37 16:43 22:24 Hgb 14.8 11.5 L D 10.0 L 08/25/21 08/26/21 05:10 05:36 Hgb 9.3 L 8.2 L Assessment and Plan (1) Toxic metabolic encephalopathy: Status: Acute (2) Bone lesion: Status: Acute (3) Community acquired pneumonia of left lower lobe of lung: Status: Acute (4) Acute respiratory failure with hypoxia: Status: Acute Plan 70 y/o M possible advanced Alzheimer's dementia-admitted to ICU: electrolytic abnormalities, seizures, possible sepsis and pneumonia and acute hypoxemic respiratory failure-patient was started on antibiotics, go treatment for hyponatremia as well as started on Keppra for possible seizure:? Subsequently transferred to floor for further management. 1.Acute respiratory failure with hypoxia sec Pneumonia: Improving got 8 days of iv antibiotics ,switched po antibiotics currently ,oxygen support Hyponatremia: probbale due to low po intake. improved. encourage po hydration, ensure ,nutritional following toxic/metabolic encephalpathy multifactorial:? Pneumonia, as per has Alzheimer dementia unclear etiology, electrolytic abnormalities, possible seizures, severe dehydration, possible related to paraneoplastic? 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 continue keppra both MRI reviewed with neurology: eeg done Seen by speech and Swallow recommended pureed diet while awake. trun patient frequently Neuro recommended to add Solu-Medrol 1 g for 2/3 days.family does not want iv ,will switch to po steriods. Sternal lesion and?Partially visualized heterogeneous lesions in the left retropharyngeal soft tissues at the level of C1 (2 cm) and left posterior musculature of the neck at the level of C1-C2 (1.6 cm). There is also a 1 cm marrow placing lesion in the high right parietal bone. These lesions are likely of similar etiology to the previously demonstrated destructive sternal mass and remain suspicious for underlying metastatic disease Patient above management discussed with the Oncology, Neurology and the patient in detail again she preferred to let nature take its course, does not want any further interventions including biopsies or invasive interventions and consider hospice for patient, currently will continue p.o. medications, encouraged for p.o. intake , family is aware that patient's overall prognosis is extremely poor. we will plan to transfer patient to hospice . need for inpatient :awaiting hospice placement Quality Stroke Does the patient have a stroke diagnosis?: No VTE Prior VTE?: No VTE Risk Level:: Medical - moderate - high VTE Device Contraindication: N/A - Device Ordered VTE Drug Contraindication: Treatment Not Indicated
[2021-09-02 09:22] LABS: Hematocrit 33.3 % (42.0-52.0); Hemoglobin 10.5 g/dl (14.0-18.0); Mean Corpuscular HGB Conc 31.5 g/dl (31.0-36.0); Mean Corpuscular Volume 95.1 fL (80.0-98.0); Mean Platelet Volume 9.5 fL (9.4-12.4); Platelet Count 416 X10*3/uL (160-400); Red Cell Distribution Width 12.4 % (11.0-16.0)
[2021-09-02 09:37] LABS: Anion Gap 11 (12-20); Blood Urea Nitrogen 17 mg/dL (9-16); Calcium 9.1 mg/dL (8.4-10.2); Carbon Dioxide 27 mmol/L (22-29); Chloride 110 mmol/L (96-108); Creatinine Clr Calc Pharmacy 86.7; Estimated Glomerular Filt Rate > 60; Glucose Random 148 mg/dL (60-115); Potassium 3.9 mmol/L (3.3-5.1); Sodium 144 mmol/L (135-145)
[2021-09-02] MEDS: Doxycycline Hyclate 100 MG in 0.9 % Sodium Chloride 250 ML 166.67 MG IV (10:20)
--- NOTE | 2021-09-02 10:41 | MHC.CLN ---
F/U PO INTAKE REMAINS POOR 0-25% DIET RX: PUREED-APPROPRIATE PT RECEIVING ENSURE ENLIVE TID TO INCREASE KCALS PROVIDES 1050KCALS, 60G PROTEIN WILL ADD MAGIC CUP TO MEALS FOR INCREASE KCALS CONTINUE TO MONITOR PO INTAKE CLOSELY
[2021-09-02 11:22] VITALS: BP 166/76; PULSE 56; RESP 19; TEMP 36.6; O2SAT 97
[2021-09-02 12:23] LABS: Prostate Specific Antigen 2.15 ng/mL (<0.05-4.0)
--- NOTE | 2021-09-02 13:02 | MHC.CM.PN ---
per rounds md will speak with about hospice referrral made to [facility] who will contac t pts to arrange imformational
--- NOTE | 2021-09-02 13:34 | MHC.SL.SWA ---
Speech Pathologist Impression: Oropharyngeal dysphagia Risk of Aspiration Due to: Lethargy Neurological Condition History of Pneumonia Poor PO Intake Reduced Cognition Dysphasia Diet Status: No Change Liquid Consistency and Strategies for Safe Swallow: Liquid Intake Recommendation: Thin Liquid Intake Strategies: Small Sips No Straws Solid Food Consistency: Dietary Recommendations: Pureed (NDD1) Additional Modifications to Solid Foods: Recommend CONTINUE PUREED solids (NDD1) and THIN liquids (NO STRAWS), pills CRUSHED in PUREE. Patient requires TOTAL ASSISTANCE feeding and ASPIRATION PRECAUTIONS. Feed patient only when patient is awake and alert, otherwise hold PO until appropriate. SAT TUTOR will continue to follow. Oral Medication Intake: Crushed with Puree Please contact the pharmacy regarding appropriate crushable or liquid drug formulations that are available whenever modified delivery is recommended. Compensatory Strategies and Precautions to be Taken for Safe Swallow: Sitting Upright (90 deg) No Straw Small Bites and Sips Alternate Liquids/Solids Rate of Ingestion Change Oral Check Supervision While Eating and Drinking for Safe Swallow: Total Assistance (1:1) Foods to Avoid: Swallowing Recommended Treatments: Compens. Strategy Educat. Recommendation for Speech: Inpatient Speech Therapy English As A Second Language Teacher Clinican/Clinical Fellow: No Supervisory Statement: I have reviewed and agree with the student/clinical fellow's documentation: N/A Speech Language Pathologist: Jaclyn Barber M.A., CCC-SAT TUTOR
[2021-09-02 16:15] VITALS: BP 164/85; PULSE 53; RESP 18; TEMP 36.8; O2SAT 100
[2021-09-02] MEDS: Omeprazole 20 MG CAPSULE.DR PO (16:47)
[2021-09-02] MEDS: predniSONE 20 MG TABLET 60 MG PO (16:47)
[2021-09-02 20:00] VITALS: BP 169/74; PULSE 74; RESP 16; TEMP 36.6; O2SAT 95
[2021-09-02 23:15] VITALS: BP 150/75; PULSE 60; RESP 19; TEMP 36.6; O2SAT 95
[2021-09-03 02:14] LABS: COVID-19 Test Negative (Negative)
[2021-09-03 03:10] VITALS: BP 153/80; PULSE 59; RESP 18; TEMP 36.9; O2SAT 96
[2021-09-03] MEDS: levETIRAcetam Oral Soln 500 MG/5 ML 750 MG PO (05:54)
[2021-09-03] MEDS: Omeprazole 20 MG CAPSULE.DR PO (05:56)
--- NOTE | 2021-09-03 07:36 | P.DS_ITS ---
DS: Providers Provider Date of Service: 09/03/21 Date of admission: 08/24/21 14:19 Primary care physician: Iveth Limon MD Consults: 08/27/21 09:07 Consult to Hematology / Oncology Routine Consulting Provider: [facility] Oncology/Hematology Reason for consultation: Destructive sternal lesion. Has provider been notified: No 08/29/21 08:32 Consult to Infectious Diseases Routine Consulting Provider: Xiao Sanderson Reason for consultation: pneumonia Has provider been notified: No 08/29/21 10:20 Consult to Neurology Routine Consulting Provider: [facility] Reason for consultation: ams -possible reccurrent seizures Has provider been notified: No DS: Diagnosis Discharge Diagnosis (1) Toxic metabolic encephalopathy: Status: Acute (2) Bone lesion: Status: Acute (3) Community acquired pneumonia of left lower lobe of lung: Status: Acute (4) Acute respiratory failure with hypoxia: Status: Acute DS: Summary Hospital Course Hospital Course: HPI:Mr. Mccullough is being admitted to the ICU bec of severe hypernatremia, severe dehydration, and possible seizures. History is from the patient?s and from [facility] medical records.? The patient is a 70-year-old man new to [facility] with past medical history of HTN, and Alzheimer?s dementia since 2013, on memantine and donepezil.? At that time, the patient was living in [place], [place], and his neurologist was Dr. Rae.? Bec of the patient's declining condition, his moved them back here to [place], closer to her family, in 2019.? His clinical status has been gradually declining, especially over the last year.? He hasn?t had a normal conversation in about a year.? The last time he saw his neurologist was in March, and the last time the patient's saw his personal physician here in this area, Dr. Limon from [place], was in May. Up until this year, the patient had been able to walk, follow simple commands, and use a fork and knife to eat and bathe with assistance. ?At the beginning of this past May, the patient was admitted to [facility] for dehydration and hypernatremia.? He was discharged to home after a few days, ( didn?t want to put him in SNF), but he was readmitted a few days later w failure to thrive, poor po intake.? Also had jerky movements of his upper and lower extremities.? He had acute kidney injury again, no fever or evidence of infection.? The patient was rehydrated and started on Keppra 750 mg bid, with significant improvement in his mental status and resolution of the jerking movements of his extremities, suggesting likely seizure disorder.? But EEG was done only after he was started on the antiepileptics; the EEG was negative.? The patient was discharged on Keppra, for follow-up with Neurology as an outpatient. The patient was discharged from [facility] to [facility] on May 27, where he stayed for two weeks, then he went back home, where his has been taking care of him with assistance from her sister.? She is 65, they?ve been for 47 years.? The patient and his have two sons who live in [place], but they don?t visit often.? The patient had physical therapy at home and the would walk with him, with the walking belt. The patient's speech and his appetite have been declining over the last month and over about the last week he has not been able to walk and has eaten very little.? She thinks that he has not known who she is for some time. ?The patient's admitted him back to [facility] yesterday because she was unable to take care of him anymore.? The subject of a feeding tube has previously been discussed with the patient's and she declined.? The patient has DNR status. hospital course: Patient was admitted to ICU initially: Due to severe dehydration, acute respiratory failure and hypernatremia: Patient was given hydration as well as treated for hypernatremia. Patient also has acute hypoxemic respiratory failure secondary to pneumonia- which was treated with IV antibiotics, oxygen ,completed antibiotics. leucocytosis possible related to high dose steriods since no fevers ,blood culture neg. Patient also has toxic metabolic encephalopathy secondary to multifactorial issues advanced dementia, poor oral intake possible failure to thrive, seizures, possible paraneoplastic(considering sternal lesion and possible metastasis please see MRI's below)- seen by neuro, oncology -given iv keppra,steriods ,supportive care but patient without significant improvement , family decided no further interventions including biospy-decided for hospice. Above management discussed with the family in detail length they understand and in agreement with the above plan, time spent 30 minutes. Time Spent with Patient Time attestation: Total time spent providing and/or coordinating discharge services: Discharge coordination time: Greater than 30 minutes Quality: Safe Use of Opioids Does Pt have an Active Cancer Diagnosis on the Problem List?: No Quality: Stroke Does the patient have a stroke diagnosis?: No Physical Exam Vital Signs: Vital Signs: Last Vital Signs Temp 98.4 F 09/03/21 03:10 Pulse 59 09/03/21 03:10 Resp 18 09/03/21 03:10 BP 153/80 H 09/03/21 03:10 Pulse Ox 96 09/03/21 03:10 Oxygen Flow Rate 60 08/24/21 16:00 BMI result Body Mass Index 24.7 Appearance: Awake ,nonverbal cvs: rrr, [id number] . res: fair air entry, no rales ,wheezing abd: soft, bs present. ext pulses present , no cyanosis . neuro: awake ,does not follow commands DS: Data Data Completed and Pending Labs on day of discharge: Laboratory Results - last 24 hr 09/02/21 09/02/21 09/03/21 08:49 08:49 01:50 WBC 21.0 H RBC 3.50 L D Hgb 10.5 L D Hct 33.3 L D MCV 95.1 MCH 30.0 MCHC 31.5 RDW 12.4 Plt Count 416 H D MPV 9.5 Absolute Nucleated RBC 0.000 Nucleated RBC % (auto) 0.0 Sodium 144 Potassium 3.9 Chloride 110 H Carbon Dioxide 27 Anion Gap 11 L BUN 17 H D Creatinine 0.77 Estim Creat Clear Calc 86.7 Estimated GFR > 60 Random Glucose 148 H D Calcium 9.1 D Prostate Specific Ag 2.15 COVID-19 (SEAN) Negative COVID-19 Clin Com See Note Additional Comments Additional comments: MR/MR head/brain w con IMPRESSION: 1. No suspicious intracranial enhancement to strongly suggest active limbic encephalitis. ? 2. Moderate generalized cerebral volume loss. ? 3. Enhancement associated with the previously noted 2 cm lesion in the left retropharyngeal soft tissues at the level of C1, 1.6 cm lesion in the left posterior musculature of the neck at the level of C1-C2, and the 1 cm marrow replacing lesion in the high right parietal bone. Along with a destructive lesion previously demonstrated within the sternum, these lesions are suspicious for metastatic disease. MR/MR head/brain wo con IMPRESSION: 1. No definitive acute intracranial abnormalities. ? 2. However, there does appear to be mildly increased T2 FLAIR hyperintensity within the bilateral mesial temporal lobes and insular cortices. This may be artifactual given the degree of motion on this exam. However, sequela of underlying infectious/inflammatory limbic encephalitis could have a similar appearance in the appropriate clinical setting. ? 3. Moderate underlying microangiopathy and generalized cerebral volume loss. ? 4. Partially visualized heterogeneous lesions in the left retropharyngeal soft tissues at the level of C1 (2 cm) and left posterior musculature of the neck at the level of C1-C2 (1.6 cm). There is also a 1 cm marrow placing lesion in the high right parietal bone. These lesions are likely of similar etiology to the previously demonstrated destructive sternal mass and remain suspicious for underlying metastatic disease. ?CT/CT abdomen pelvis wo con IMPRESSION: 1.? Destructive sternal lesion. 2.? Left lower lobe infiltrate with tree-in-bud opacities in the right lower lobe suggestive of inflammatory disease ? Fleischner guidelines were followed. CT/CT chest wo con IMPRESSION: 1.? Destructive sternal lesion. 2.? Left lower lobe infiltrate with tree-in-bud opacities in the right lower lobe suggestive of inflammatory disease ? Discharge Plan Discharge Patient Disposition: [facility] Discharge Diagnosis: Acute hypoxemic respiratory failure secondary to pneumonia, hyponatremia, failure to thrive due to poor oral intake, toxic metabolic encephalopathy , sternal lesion and heterogeneous lesions in the left retropharyngeal soft tissues at the level of C1. Referrals: [facility] [Other] - 1 Week [facility] [Other] - 1 Week Iveth Limon MD [Primary Care Provider] - 1 Week Discharge Medications: New prednisone 20 mg Tablet 60 mg PO DAILY Qty: 18 0RF omeprazole 20 mg Capsule,Delayed Release(Dr/Ec) 20 mg PO BID@0630,1630 Qty: 60 0RF morphine concentrate 100 mg/5 mL (20 mg/mL) Solution 5 mg PO Q3H PRN (Reason: pain/comfort) 15 Days Qty: 30 0RF Continued sennosides [senna] 8.6 mg Tablet 17.2 mg PO DAILY 0RF acetaminophen 325 mg Tablet 650 mg PO BEDTIME 0RF albuterol sulfate 2.5 mg /3 mL (0.083 %) solution for nebulization 1 vial inhalation Q4H PRN (Reason: wheezing) 0RF levetiracetam 100 mg/mL solution 7.5 ml PO Q12H 0RF melatonin 5 mg Tablet 5 mg PO BEDTIME 0RF Multivitamin Gummies 200 mcg Tablet,Chewable 2 tab PO DAILY 0RF Discharge Orders: Discharge Order (Routine); Ordered 09/03/21 Ordered By: Chrissy Leal Diet: advance to usual diet Activity on Discharge: As tolerated Stand Alone Forms: Patient Portal Discharge page Care Plan Goals: Patient was admitted to ICU initially: Due to severe dehydration, acute respiratory failure and hypernatremia: Patient was given hydration as well as treated for hypernatremia. Patient also has acute hypoxemic respiratory failure secondary to pneumonia- which was treated with IV antibiotics, oxygen ,completed antibiotics. Patient also has toxic metabolic encephalopathy secondary to multifactorial issues advanced dementia, poor oral intake possible failure to thrive, seizures, possible paraneoplastic(considering sternal lesion and possible metastasis)- patient did not improve much with supportive care, family decided no further interventions-decided for hospice. Further management outpatient with PCP. Health Concerns: as above. Plan of Treatment: as above. Assessment: as above.
[2021-09-03 07:52] LABS: Anion Gap 17 (12-20); Blood Urea Nitrogen 21 mg/dL (9-16); Calcium 8.9 mg/dL (8.4-10.2); Carbon Dioxide 20 mmol/L (22-29); Chloride 111 mmol/L (96-108); Estimated Glomerular Filt Rate > 60; Glucose Random 119 mg/dL (60-115); Potassium 5.9 mmol/L (3.3-5.1); Sodium 142 mmol/L (135-145)
[2021-09-03 07:53] VITALS: BP 147/77; PULSE 66; RESP 19; TEMP 36.7; O2SAT 98
[2021-09-03] MEDS: predniSONE 20 MG TABLET 60 MG PO (10:20)
== END 2021-09-03 11:00 | disposition skilled nursing facility (03) | DRG 871 ==
LOC: HO.ED 14:20 → HO.EDOVER 14:27 → HO.ICU 14:34 → HO.IMC 08-26 12:47
PROVIDERS: Internal Medicine Cardiovascular Disease; Internal Medicine Medical Oncology; Physician Assistant Medical; Admitting Provider Anesthesiology; Emergency Provider Emergency Medicine; PCP Pediatrics; Visit Provider Internal Medicine
DX: A41.9 Sepsis, unspecified organism (principal); J18.9 Pneumonia, unspecified organism; G92.8 Other toxic encephalopathy; J96.01 Acute respiratory failure with hypoxia; R65.21 Severe sepsis with septic shock; C79.51 Secondary malignant neoplasm of bone; C79.89 Secondary malignant neoplasm of other specified sites; E44.0 Moderate protein-calorie malnutrition; E87.0 Hyperosmolality and hypernatremia; E87.1 Hypo-osmolality and hyponatremia; N17.9 Acute kidney failure, unspecified; Z66 Do not resuscitate; E86.0 Dehydration; R62.7 Adult failure to thrive; I10 Essential (primary) hypertension; E83.42 Hypomagnesemia; G31.01 Pick's disease; G30.9 Alzheimer's disease, unspecified; F02.80 Dementia in other diseases classified elsewhere, unspecified severity, without behavioral disturbance, psychotic disturbance, mood disturbance, and anxiety; Z20.822 Contact with and (suspected) exposure to COVID-19; Z68.24 Body mass index [BMI] 24.0-24.9, adult; Z79.52 Long term (current) use of systemic steroids; Z79.899 Other long term (current) drug therapy
CPT/HCPCS: 36415; 70551; 70552; 71045; 71250; 74176; 80048; 80053; 80177; 80202; 81001; 81003; 82040; 82565; 82803; 82947; 83605; 83735; 83880; 84100; 84145; 84153; 84295; 84484; 85007; 85025; 85027; 85379; 87040; 87502; 87635; 92526; 92610; 93005; 94640; 94660; 95816; 96361; 96365; 96375; 99285; A9585; J0696; J1170; J1953; J2543; J2930; J3370; J3475; P9047